=== PATIENT | female | born 1970 | race Caucasian/White ===

== ENCOUNTER 2019-01-25 19:39 | Emergency (ER) | payer OTHER ==
[~2019-01-25] VITALS: Ht 152.4 cm; Wt 81.7 kg
[2019-01-25 20:16] VITALS: Ht 152.4 cm; Wt 81.7 kg
[2019-01-25] MEDS ORDERED: ONDANSETRON 4 MG INJ IV STA (22:27)
[2019-01-25] MEDS ORDERED: KETOROLAC 30 MG INJ IV STA (22:27)
[2019-01-25] MEDS ORDERED: SOD CHLORIDE 0.9% 1,000 ML IV STA (22:27)
[2019-01-25] MEDS ORDERED: morphine 4 MG/ML VIAL IV STA (22:27)
[2019-01-25] MEDS ORDERED: IBUP-1545 PO (23:51)
[2019-01-26] MEDS ORDERED: HYDROmorphONE 1 MG/ML SYG IV STA (03:02)
--- NOTE | 2019-01-26 05:27 | ERD ---
ER Documentation Chief Complaint Chief Complaint right flank pain x 2 days, hx of kidney stone HPI This is a resident very pleasant 48-year female right flank pain for 2 days. Patient has history of kidney stones. Flank pain is mild to moderate intensity colicky in nature with no exacerbating relieving factors and is consistent with a history of kidney stones. Denies any fevers or chills. Denies any other current issues. ROS All systems reviewed and are negative except as per history of present illness. Medications Home Meds Reported Medications Ibuprofen* (Ibuprofen*) 800 Mg Tab, 800 MG PO Q6H PRN for PAIN, TAB 01/25/19 Allergies Allergies: Coded Allergies: No Known Drug Allergies (Verified Allergy, Unknown, 01/25/19) PMhx/Soc History of Surgery: Yes (4 C-sections, bilat ureter stents) Anesthesia Reaction: No Hx Neurological Disorder: No Hx Respiratory Disorders: No Hx Cardiac Disorders: No Hx Psychiatric Problems: No Hx Miscellaneous Medical Probl: No Hx Alcohol Use: No Hx Substance Use: No Hx Tobacco Use: Yes (Quit Cigarettes 2007) Smoking Status: Former smoker Physical Exam Vitals Vital Signs Date Temp Pulse Resp B/P (MAP) Pulse Ox O2 O2 Flow FiO2 Time Delivery Rate 01/26/19 98.6 72 18 105/71 100 Room Air 03:00 (82) 01/26/19 98.6 73 18 104/62 100 Room Air 01:22 (76) 01/25/19 98.6 79 18 132/77 100 20:16 (95) Physical Exam Const: No acute distress Head: Atraumatic Eyes: Normal Conjunctiva ENT: Normal External Ears, Nose and Mouth. Neck: Full range of motion. No meningismus. Resp: Clear to auscultation bilaterally Cardio: Regular rate and rhythm, no murmurs Abd: Soft, non tender, non distended. Normal bowel sounds Skin: No petechiae or rashes Back: No midline or flank tenderness Ext: No cyanosis, or edema Neur: Awake and alert Psych: Normal Mood and Affect Result Diagram: 01/25/19224401/25/192244 Results 24 hrs Laboratory Tests Test 01/25/19 22:42 01/25/19 22:45 01/25/19 22:54 Urine Color YELLOW Urine Clarity CLOUDY Urine pH 5.0 Urine Specific [place] 1.015 Urine Ketones TRACE mg/dL Urine Nitrite NEGATIVE mg/dL Urine Bilirubin NEGATIVE mg/dL Urine Urobilinogen NEGATIVE mg/dL Urine Leukocyte Esterase 3+ Tyra/ul Urine Microscopic RBC > 182 /HPF Urine Microscopic WBC > 182 /HPF Urine Squamous Epithelial Cells FEW /HPF Urine Bacteria FEW /HPF Urine Hemoglobin 3+ mg/dL Urine Glucose NEGATIVE mg/dL Urine Total Protein 1+ mg/dl White Blood Count 6.7 10^3/ul Red Blood Count 4.85 10^6/ul Hemoglobin 11.6 g/dl Hematocrit 37.4 % Mean Corpuscular Volume 77.1 fl Mean Corpuscular Hemoglobin 23.9 pg Mean Corpuscular 31.0 g/dl Hemoglobin Concent Red Cell Distribution Width 13.9 % Platelet Count 292 10^3/UL Mean Platelet Volume 9.5 fl Immature Granulocytes % 0.300 % Neutrophils % 56.9 % Lymphocytes % 32.5 % Monocytes % 8.4 % Eosinophils % 1.4 % Basophils % 0.5 % Nucleated Red Blood Cells % 0.0 /100WBC Immature Granulocytes # 0.020 10^3/ul Neutrophils # 3.8 10^3/ul Lymphocytes # 2.2 10^3/ul Monocytes # 0.6 10^3/ul Eosinophils # 0.1 10^3/ul Basophils # 0.0 10^3/ul Nucleated Red Blood Cells # 0.0 10^3/ul Sodium Level 139 mmol/L Potassium Level 4.0 mmol/L Chloride Level 107 mmol/L Carbon Dioxide Level 20 mmol/L Anion Gap 12 Blood Urea Nitrogen 18 mg/dl Creatinine 0.63 mg/dl Est Glomerular Filtrat > 60 mL/min Rate mL/min Glucose Level 94 mg/dl Calcium Level 9.6 mg/dl Total Bilirubin 0.2 mg/dl Direct Bilirubin 0.00 mg/dl Indirect Bilirubin 0.2 mg/dl Aspartate Amino 21 IU/L Transf (AST/SGOT) Alanine 21 IU/L Aminotransferase (ALT/SGPT) Alkaline Phosphatase 88 IU/L Total Protein 7.7 g/dl Albumin 4.4 g/dl Globulin 3.30 g/dl Albumin/Globulin Ratio 1.33 Lipase 230 U/L POC Beta HCG, Qualitative NEGATIVE Current Medications Medications Dose Sig/Keegan Start Time Status Last (Trade) Ordered Route PRN Stop Time Admin Dose Reason Admin Sodium 1,000 ml @ Q1H STAT 01/25/19 DC 01/25/19 Chloride 1,000 mls/hr IV 22:27 23:22 01/25/19 23:26 Morphine 4 mg ONCE STAT 01/25/19 DC 01/25/19 Sulfate IV 22:27 23:22 (morphine) 01/25/19 22:29 Ondansetron 4 mg ONCE STAT 01/25/19 DC 01/25/19 HCl (Zofran IV 22:27 23:22 Inj) 01/25/19 22:29 Ketorolac 30 mg ONCE STAT 01/25/19 DC 01/25/19 Tromethamine IV 22:27 23:23 (Toradol) 01/25/19 22:29 1 mg ONCE STAT 01/26/19 DC 01/26/19 Hydromorphone IV 03:02 03:25 HCl 01/26/19 03:03 (Dilaudid) Procedures/MDM Medical decision making: Very pleasant patient with flank pain. Likely secondary to kidney stone. Pending CT scan at this time. Pain has completely resolved and will likely qualify for trial of outpatient management. Patient's gastrointestinal symptoms have stabilized while in the department. No evidence of severe dehydration, sepsis, or surgical abdomen. Extensive discussion with family and patient that occult disease cannot be ruled out. 8 hour recheck for repeat abdominal exam is planned. Departure Diagnosis: Primary Impression: Flank pain Condition: Stable VERA GRESHAM Jan 26, 2019 05:27
[2019-01-26] MEDS ORDERED: ONDA4TAB8 PO (05:28)
[2019-01-26] MEDS ORDERED: CIPR500T4 PO (05:28)
[2019-01-26] MEDS ORDERED: TRAM50TA2 PO (05:28)
[2019-01-26 05:49] VITALS: BP 154/86; PULSE 68; RESP 18
== END 2019-01-26 05:50 | disposition home or self-care (01) ==
LOC: E/R 19:39
DX: R10.9 Unspecified abdominal pain (principal); Z87.891 Personal history of nicotine dependence
CPT/HCPCS: 36415; 74176; 80053; 81001; 81025; 83690; 85025; 87086; 96374; 96375; J1170; J1885; J2270; J2405; J7030; Z7502

== ENCOUNTER 2019-02-11 17:29 | Inpatient (IN) | payer OTHER ==
[~2019-02-11] VITALS: Ht 154.9 cm; Wt 80.0 kg
[~2019-02-11 17:29] MED LIST: CIPR500T4 PO; IBUP-1545 PO; ONDA4TAB8 PO; TRAM50TA2 PO
[2019-02-11 20:20] VITALS: Ht 154.9 cm; Wt 80.0 kg
[2019-02-11 20:32] VITALS: BP 142/86; PULSE 76; RESP 18
--- NOTE | 2019-02-11 20:38 | HP ---
Date/Time of Note Date/Time of Note DATE: 02/11/19 TIME: 20:38 Assessment/Plan VTE Prophylaxis SCD applied (from Nsg): Yes Pharmacological prophylaxis: NA/contraindicated Pharm contraindication: low risk/ambulating Assessment/Plan Hospital Course This is a 49-year-old female being admitted to the [facility] floor for: #1 Pyelonephritis: Urinalysis showed positive leukoesterase. Mild hydronephrosis on CT. Creatinine was 0.95. Will obtain repeat CBC and CMP. Patient did receive ceftriaxone and IV fluids with the transfer facility, the current time will continue ceftriaxone based on the culture and sensitivities. Patient does have a right ureteral stent placed. On the repeat CAT scan done at the transferring hospital there does not appear to be any signs of any kidney stones which were present on the prior CT performed [facility] on 01/26/2019. We will continue treatment with ceftriaxone given patient's sensitivities. Will consult urology dr. Luis for likely stent removal. #2 Microcytic anemia: We will check stool occult blood, check iron stores #3 obesity, check hemoglobin A1c, lipids, TSH #4 DVT GI prophylaxis: SCDs, no GI prophylaxis indicated further treatment strategy will be implemented as per the clinical course. Further treatment strategy will be implemented as per the clinical course. HPI/ROS Admit Date/Time Admit Date/Time Feb 11, 2019 at 20:14 Hx of Present Illness chief complaint: Right-sided flank pain This is a 49-year-old female with a past medical history of kidney stones who presented to [facility] complaining of right-sided flank pain. Patient reported that the pain radiated to her abdomen. She also reported hematuria. History of kidney stones. She denied reporting any fevers chills but she did report dysuria. She did have ureteral stents placed approximately 3 months ago at [facility] but because she switched insurances she was unable to follow-up with the urologist.. Patient also presented to [facility] on 01/26/2019 and was found to have a 3 mm and 4 mm nonobstructing kidney stone. Patient was ultimately discharged that day. She had a urine culture that was drawn at that time that was positive for 100,000 E. coli that was resistant to multiple antibiotics but sensitive to cefazolin and cefotaxime. Patient had a repeat CT scan at [facility] that showed right ureteral stent, and IUD mild right hydronephrosis and no other significant finding there was no signs of any stones in the renal or ureteral areas. The patient did receive ceftriaxone and IV fluid hydration prior to transfer. Vitals at transfer facility: Blood pressure 131/58 pulse 66 temperature 98.4 respirations 18 SPO2 97% on room air Pertinent laboratory findings from transfer facility please see chart for full details: Hemoglobin 10.4 hematocrit 32.5 MCV 74.6 creatinine 0.95 urinalysis: Leukoesterase 3+ white blood cells and RBC greater than 50 specific gravity greater than 1.030 Allergies: NKDA medications: See MAR ROS Const: Negative for fever, chills, weight gain or weight loss, fatigue, or diaphoresis Eyes : No pain discharge or redness or change in visual acuity ENT: No pain, sore throat, congestion, congestion, dysphagia or discharge Respiratory: No shortness of breath, cough, sputum, wheezing, or pleuritic pain Cardiovascular: No chest pain, palpitation, PND, or edema GI : no change in appetite, abdominal pain, nausea, vomiting, diarrhea, constipation, or change in the color his stool Genitourinary: As per HPI Musculoskeletal: No joint pain, back pain, neck pain, restricted range of motion in neck or joints Skin: No rash, bruising or hives Neuro: No headache, dizziness, syncope, seizure, focal weakness Endocrine: No polyuria, polydipsia, temperature intolerance Psych: No hallucination, depression, anxiety or suicidal ideation PMH/Family/Social Past Medical History Nephrolithiasis Coded Allergies: No Known Drug Allergies (Verified Allergy, Unknown, 01/25/19) Past Surgical History Ureteral stent placement,, csection x 5 Family History Significant Family History: no pertinent family hx Social History Alcohol Use: none Drug Use: none Exam/Review of Systems Vital Signs Vitals Vital Signs Date Temp Pulse Resp B/P (MAP) Pulse Ox O2 O2 Flow FiO2 Time Delivery Rate 02/11/19 97.5 76 18 142/86 98 20:32 (104) Exam Exam General: This a pleasant female currently lying in bed in mild distress right flank pain HEENT: Atraumatic, normocephalic. The pupils are equal, round and reactive. E xtraocular motor are intact Neck: Supple with full range of motion. No rigidity or meningismus Chest: Nontender Lungs: Clear to auscultation bilaterally no crackles rales or wheezing Heart: Normal S1-S2, Regular rhythm and rate. No murmur, S3, or S4 Abdomen: Soft, nontender, nondistended, normal bowel sounds, mild right flank pain to palpation Extremities: Normal to inspection, no edema no cyanosis Neurologic: Normal mental status, speech normal, cranial nerves II through XII are intact, motor and sensory are intact, no focal weakness Additional Comments Specimen: [id number] Status: Complete Major: 01/25/19 Rcvd: 01/25/19 Source: [facility] Descrip: ----- Procedure Result Microbiology URINE CULTURE Final Organism 1 ENTEROCOCCUS SPECIES COLONY COUNT >100,000 CFU/ml Organism 2 ESCHERICHIA COLI COLONY COUNT <10,000 CFU/ml ENT SPS E COLI M.I.C. RX M.I.C. RX --------- --- --------- --- AMIKACIN <=2 S AMPICILLIN <=2 S >=32 R CEFAZOLIN <=4 S CEFOTAXIME S CIPROFLOXACIN 1 S >=4 R GENTAMICIN >=16 R LEVOFLOXACIN 0.5 S >=8 R NITROFURANTOIN <=16 S <=16 S PENICILLIN-G 4 S VANCOMYCIN 2 S TOBRAMYCIN 8 I TRIMETHOPRIM/SULFAMETHOXAZOLE <=20 S VENESSA MERRILL Feb 11, 2019 20:38
[2019-02-11] MEDS: HYDROmorphONE 0.5 MG/0.5 ML SYG IV PRN (20:50)
[2019-02-11] MEDS: SOD CHLORIDE 0.9% 1,000 ML IV SCH (20:52)
[2019-02-11] MEDS ORDERED: ACETAMINOPHEN 325 MG TAB PO PRN (21:00)
[2019-02-11] MEDS ORDERED: NACL 0.9% 3 ML SYG IV SCH (21:00)
[2019-02-11] MEDS ORDERED: ONDANSETRON 4 MG INJ IV PRN (21:00)
[2019-02-11] MEDS ORDERED: DOCUSATE SODIUM 100 MG CAP PO PRN (21:00)
[2019-02-11] MEDS ORDERED: BISACODYL (EC) 5 MG TAB PO PRN (21:00)
[2019-02-12] MEDS: HYDROmorphONE 0.5 MG/0.5 ML SYG IV PRN ×6 (01:04→22:18)
[2019-02-12 02:00] VITALS: BP 139/81; PULSE 77; RESP 17
[2019-02-12] MEDS ORDERED: CEFTRIAXONE 1 GM/50 ML (PMX) 50 ML IVPB SCH (03:30)
[2019-02-12] MEDS: TAMSULOSIN (SR) 0.4 MG CAP PO SCH ×2 (04:48→21:28)
[2019-02-12] MEDS: KETOROLAC 15 MG INJ IV PRN ×2 (07:32→16:40)
[2019-02-12] MEDS: SOD CHLORIDE 0.9% 1,000 ML IV SCH ×3 (07:33→23:25)
[2019-02-12 08:00] VITALS: BP 110/64; PULSE 74; RESP 20
--- NOTE | 2019-02-12 12:27 | PN ---
Date/Time of Note Date/Time of Note DATE: 02/12/19 TIME: 12:24 Assessment/Plan VTE Prophylaxis Risk score (from Nsg)>0 risk: 2 SCD applied (from Nsg): Yes Pharmacological prophylaxis: NA/contraindicated Pharm contraindication: low risk/ambulating Lines/Catheters IV Catheter Type (from Nrsg): Peripheral IV Assessment/Plan Hospital Course SUBJECTIVE: Continues to complain of dysuria and hematuria. OBJECTIVE: Physical Exam General: Adequately build 49 year-old female lying in bed in no apparent distress. HEENT: Normocephalic, atraumatic. Eyes: Anicteric sclerae, conjunctivae clear. ENT: Nasal septum midline, oral mucosa moist. Neck supple, no JVD noticed. Respiratory: Bilaterally clear breath sounds. No use of accessory muscles of res piration. No adventitious breath sounds. Cardiovascular: S1, S2 heard. Regular rate and rhythm. Abdomen: Soft, nontender, and nondistended. Bowel sounds positive in all 4 quadrants. Genitourinary: Right CVA tenderness. Extremities: No cyanosis, no clubbing, no edema. Peripheral pulses palpable. Neurologic: Cranial nerves II through XII grossly intact. The patient is awake, alert, and oriented. Skin: Normal skin turgor. No skin rashes. Labs & Vitals per chart ASSESSMENT & PLAN 49-year-old female with past medical history of nephrolithiasis, status post JJ stent placement in November 2018 at [facility]. The patient went to [facility] complaining of right-sided flank pain, hematuria, and dysuria. CT scan done at the transferring facility showed right ureteral stent, IUD, and mild right hydronephrosis. The patient was trans ferred to [facility] because of insurance reasons. 1. Right sided-pyelonephritis. -Possibly infected JJ stent. -Continue antimicrobials. -Await final cultures. -Continue IV hydration. 2. History of nephrolithiasis, status post previous stent placement. -Urology consult has been obtained. 3. Microcytic, hypochromic anemia. -Iron panel showing iron deficiency. -Start iron supplements. 4. Obesity. -BMI more than 33 kg/m. -A1c 5.7. -Weight reduction advised. 5. Fluids, electrolytes, and nutrition. - Regular diet. 6. DVT prophylaxis -Bilateral SCDs 7. Plan. -Continue empiric antimicrobials -Continue IV fluids -Await final cultures. -Await urology evaluation. The patient was seen in collaboration with Dr. Rodriguez. Result Diagram: 02/12/19 0445 02/12/19 0445 Results 24hrs Laboratory Tests Test 02/11/19 20:53 02/12/19 04:45 White Blood Count 4.6 #L 4.6 L Red Blood Count 3.79 #L 3.87 L Hemoglobin 8.9 #L 9.1 L Hematocrit 29.4 #L 29.9 L Mean Corpuscular Volume 77.6 L 77.3 L Mean Corpuscular Hemoglobin 23.5 L 23.5 L Mean Corpuscular Hemoglobin Concent 30.3 L 30.4 L Red Cell Distribution Width 14.0 14.3 Platelet Count 235 255 Mean Platelet Volume 9.0 10.3 Immature Granulocytes % 0.200 0.400 Neutrophils % 38.4 L 54.2 Lymphocytes % 48.6 34.6 Monocytes % 10.4 8.3 Eosinophils % 2.0 1.8 Basophils % 0.4 0.7 Nucleated Red Blood Cells % 0.0 0.0 Immature Granulocytes # 0.010 0.020 Neutrophils # 1.8 2.5 Lymphocytes # 2.2 1.6 Monocytes # 0.5 0.4 Eosinophils # 0.1 0.1 Basophils # 0.0 0.0 Nucleated Red Blood Cells # 0.0 0.0 Sodium Level 141 142 Potassium Level 4.2 4.2 Chloride Level 113 H 111 H Carbon Dioxide Level 22 22 Anion Gap 6 9 Blood Urea Nitrogen 13 12 Creatinine 0.69 0.60 Est Glomerular Filtrat Rate mL/min > 60 > 60 Glucose Level 103 95 Calcium Level 8.7 8.6 Total Bilirubin 0.2 0.1 L Direct Bilirubin 0.00 0.00 Indirect Bilirubin 0.2 0.1 Aspartate Amino Transf (AST/SGOT) 21 18 Alanine Aminotransferase (ALT/SGPT) 20 28 Alkaline Phosphatase 69 73 Total Protein 6.2 6.2 Albumin 3.5 3.4 Globulin 2.70 2.80 Albumin/Globulin Ratio 1.29 1.21 Hemoglobin A1c 5.7 Iron Level 27 L Total Iron Binding Capacity 418 Percent Iron Saturation 6 L Ferritin 3.4 L Triglycerides Level 154 H Cholesterol Level 181 LDL Cholesterol, Calculated 119 HDL Cholesterol 31 L Cholesterol/HDL Ratio 5.8 Thyroid Stimulating Hormone (TSH) 3.320 Exam/Review of Systems Exam Vitals Vital Signs Date Temp Pulse Resp B/P (MAP) Pulse Ox O2 O2 Flow FiO2 Time Delivery Rate 02/12/19 98.8 74 20 110/64 64 08:00 (79) Intake and Output 02/11/19 02/11/19 02/12/19 1515:00 23:00 07:00 IntakeIntake Total 240 ml 1240 ml BalanceBalance 240 ml 1240 ml Results Results 24hrs Laboratory Tests Test 02/11/19 20:53 02/12/19 04:45 White Blood Count 4.6 #L 4.6 L Red Blood Count 3.79 #L 3.87 L Hemoglobin 8.9 #L 9.1 L Hematocrit 29.4 #L 29.9 L Mean Corpuscular Volume 77.6 L 77.3 L Mean Corpuscular Hemoglobin 23.5 L 23.5 L Mean Corpuscular Hemoglobin Concent 30.3 L 30.4 L Red Cell Distribution Width 14.0 14.3 Platelet Count 235 255 Mean Platelet Volume 9.0 10.3 Immature Granulocytes % 0.200 0.400 Neutrophils % 38.4 L 54.2 Lymphocytes % 48.6 34.6 Monocytes % 10.4 8.3 Eosinophils % 2.0 1.8 Basophils % 0.4 0.7 Nucleated Red Blood Cells % 0.0 0.0 Immature Granulocytes # 0.010 0.020 Neutrophils # 1.8 2.5 Lymphocytes # 2.2 1.6 Monocytes # 0.5 0.4 Eosinophils # 0.1 0.1 Basophils # 0.0 0.0 Nucleated Red Blood Cells # 0.0 0.0 Sodium Level 141 142 Potassium Level 4.2 4.2 Chloride Level 113 H 111 H Carbon Dioxide Level 22 22 Anion Gap 6 9 Blood Urea Nitrogen 13 12 Creatinine 0.69 0.60 Est Glomerular Filtrat Rate mL/min > 60 > 60 Glucose Level 103 95 Calcium Level 8.7 8.6 Total Bilirubin 0.2 0.1 L Direct Bilirubin 0.00 0.00 Indirect Bilirubin 0.2 0.1 Aspartate Amino Transf (AST/SGOT) 21 18 Alanine Aminotransferase (ALT/SGPT) 20 28 Alkaline Phosphatase 69 73 Total Protein 6.2 6.2 Albumin 3.5 3.4 Globulin 2.70 2.80 Albumin/Globulin Ratio 1.29 1.21 Hemoglobin A1c 5.7 Iron Level 27 L Total Iron Binding Capacity 418 Percent Iron Saturation 6 L Ferritin 3.4 L Triglycerides Level 154 H Cholesterol Level 181 LDL Cholesterol, Calculated 119 HDL Cholesterol 31 L Cholesterol/HDL Ratio 5.8 Thyroid Stimulating Hormone (TSH) 3.320 Medications Medication Current Medications Sodium Chloride 1,000 ml @ 100 mls/hr Q10H IV Last administered on 02/12/19 07:33; Admin Dose 100 MLS/HR; Start 02/11/19 at 20:35 IV Flush (NS 3 ml) 3 ml PER PROTOCOL IV ; Start 02/11/19 at 21:00 Ondansetron HCl (Zofran Inj) 4 mg Q6H PRN IV NAUSEA/VOMITING Last administered on 02/11/19at 20:50; Admin Dose 4 MG; Start 02/11/19 at 21:00 Acetaminophen (Tylenol Tab) 650 mg Q6H PRN PO .PAIN 1-3 OR TEMP; Start 02/11/19 at 21:00 Hydromorphone HCl (Dilaudid) 0.5 mg Q4H PRN IV .SEVERE PAIN 7-10 Last administered on 02/12/19 09:12; Admin Dose 0.5 MG; Start 02/11/19 at 21:00 Docusate Sodium (Colace) 100 mg Q12H PRN PO .CONSTIPATION; Start 02/11/19 at 21:00 Bisacodyl (Dulcolax) 5 mg DAILY PRN PO .CONSTIPATION; Start 02/11/19 at 21:00 Tamsulosin HCl (Flomax) 0.4 mg HS PO Last administered on 02/12/19at 04:48; Admin Dose 0.4 MG; Start 02/12/19 at 03:30 Ketorolac Tromethamine (Toradol) 15 mg Q6H PRN IV PAIN Last administered on 02/12/19 07:32; Admin Dose 15 MG; Start 02/12/19 at 03:30; Stop 02/15/19 at 03:29 Ceftriaxone Sodium 50 ml @ 100 mls/hr Q24H IVPB ; Start 02/12/19 at 14:00 KAREN SHARIF NP Feb 12, 2019 12:27
[2019-02-12 14:00] VITALS: BP 123/62; PULSE 86; RESP 18
[2019-02-12] MEDS: CEFTRIAXONE 1 GM/50 ML (PMX) 50 ML IVPB SCH (14:02)
[2019-02-12] MEDS: SOD FERRIC GLUC COMPLX 125 MG in SOD CHLORIDE 0.9% 100 ML IVPB SCH (14:47)
[2019-02-12 20:28] VITALS: BP 112/71; PULSE 79; RESP 20
--- NOTE | 2019-02-12 21:36 | CONS ---
Assessment/Plan Assessment/Plan Hospital Course (Demo Recall) This is a 49-year-old female who back in November 2018 and underwent surgery for ureteral stones at [facility]. She states she did have a JJ stent in the left ureter which was attached to a string that was brought out through her urethra she also had another JJ stent on the right side but that one was kept indwelling without the string attached to it since then the left ur eteral stent was removed and she was told by the doctors at [facility] that she needs to keep her right ureteral JJ stent longer. She states that every time she goes over there and last time was on February 08 they keep telling her to wait another 2 weeks. Question is if there was any ureteral injury that required to have the JJ stent for a long time to allow the ureter to heal. The patient does not know of any problem like that. She has been to different hospital since including [facility] and [facility] and [facility]. The patient presented to this hospital now because of back pain. I tried to find out from the patient to why they keep telling her to wait another 2 weeks before they remove the JJ stent. There could be a possibility o f ureteral injury and the wait is to allow that to heal. For now treat her infection, encourage p.o. fluids and try to obtain her records from [facility]. If there is no issue of ureteral injury then we could go ahead and do a cystoscopy and remove the JJ stent. Consultation Date/Type/Reason Admit Date/Time Feb 11, 2019 at 20:14 Date of Consultation: Feb 12, 2019 Type of Consult Urology Reason for Consultation Right ureteral JJ stent and recurrent urinary tract infections Requesting Provider: BIB RUGGIERO MD Date/Time of Note DATE: 02/12/19 TIME: 21:26 Hx of Present Illness This is a 49-year-old female who back in November 2018 and underwent surgery for ureteral stones at [facility]. She states she did have a JJ stent in the left ureter which was attached to a string that was brought out through her urethra she also had another JJ stent on the right side but that one was kept indwelling without the string attached to it since then the left ureteral stent was removed and she was told by the doctors at [facility] that she needs to keep her right ureteral JJ stent longer. She states that every time she goes over there and last time was on February 08 they keep telling her to wait another 2 weeks. Question is if there was any ureteral injury that required to have the JJ stent for a long time to allow the ureter to heal. The patient does not know of any problem like that. She has been to different hospital since including [facility] and [facility] and [facility]. The patient presented to this hospital now because of back pain. Constitutional: no complaints Eyes: no complaints ENT: no complaints Respiratory: no complaints; No wheezing Cardiovascular: no complaints; No chest pain Gastrointestinal: no complaints; No nausea, No vomiting Genitourinary: dysuria Musculoskeletal: no complaints Skin: no complaints Neurologic: no complaints Endocrine: no complaints Lymphatic: no complaints Past Medical History Medical History: no pertinent history Home Meds Active Scripts Ondansetron Hcl* (Zofran*) 4 Mg Tablet, 4 MG PO Q6H for NAUSEA AND/OR VOMITING, #30 TAB Prov:VERA GRESHAM 01/26/19 Tramadol HCl (Tramadol HCl) 50 Mg Tablet, 50 MG PO Q4 PRN for PAIN, #20 TAB Prov:VERA GRESHAM 01/26/19 Reported Medications Ibuprofen* (Ibuprofen*) 800 Mg Tab, 800 MG PO Q6H PRN for PAIN, TAB 01/25/19 Discontinued Scripts Ciprofloxacin Hcl* (Ciprofloxacin Hcl*) 500 Mg Tablet, 500 MG PO BID for 3 Days, TAB Prov:VERA GRESHAM 01/26/19 Medications Current Medications Sodium Chloride 1,000 ml @ 100 mls/hr Q10H IV Last administered on 02/12/19at 07:33; Admin Dose 100 MLS/HR; Start 02/11/19 at 20:35 IV Flush (NS 3 ml) 3 ml PER PROTOCOL IV ; Start 02/11/19 at 21:00 Ondansetron HCl (Zofran Inj) 4 mg Q6H PRN IV NAUSEA/VOMITING Last administered on 02/11/19at 20:50; Admin Dose 4 MG; Start 02/11/19 at 21:00 Acetaminophen (Tylenol Tab) 650 mg Q6H PRN PO .PAIN 1-3 OR TEMP; Start 02/11/19 at 21:00 Hydromorphone HCl (Dilaudid) 0.5 mg Q4H PRN IV .SEVERE PAIN 7-10 Last administered on 02/12/19 18:11; Admin Dose 0.5 MG; Start 02/11/19 at 21:00 Docusate Sodium (Colace) 100 mg Q12H PRN PO .CONSTIPATION; Start 02/11/19 at 21:00 Bisacodyl (Dulcolax) 5 mg DAILY PRN PO .CONSTIPATION; Start 02/11/19 at 21:00 Tamsulosin HCl (Flomax) 0.4 mg HS PO Last administered on 02/12/19 04:48; Admin Dose 0.4 MG; Start 02/12/19 at 03:30 Ketorolac Tromethamine (Toradol) 15 mg Q6H PRN IV PAIN Last administered on 02/12/19 16:40; Admin Dose 15 MG; Start 02/12/19 at 03:30; Stop 02/15/19 at 03:29 Ceftriaxone Sodium 50 ml @ 100 mls/hr Q24H IVPB Last administered on 02/12/19at 14:02; Admin Dose 100 MLS/HR; Start 02/12/19 at 14:00 Ferric Sodium Gluconate Complex 125 mg/Sodium Chloride 100 ml @ 100 mls/hr DAILY@1300 IVPB Last administered on 02/12/19 14:47; Admin Dose 100 MLS/HR; Start 02/12/19 at 15:00; Stop 02/14/19 at 13:59 Allergies: Coded Allergies: No Known Drug Allergies (Verified Allergy, Unknown, 01/25/19) Past Surgical History Past Surgical Hx: other (Cystoscopy, ureteroscopy, laser lithotripsy and insertion of ureteral JJ stents) Social History Alcohol Use: none Smoking Status: Never smoker Drug Use: none Other Social History 6 para 6, 4 C-sections and 2 normal deliveries Exam/Review of Systems Exam Vitals Vital Signs Date Temp Pulse Resp B/P (MAP) Pulse Ox O2 O2 Flow FiO2 Time Delivery Rate 02/12/19 98.3 79 20 112/71 96 20:28 (85) Intake and Output 02/11/19 02/11/19 02/12/19 1515:00 23:00 07:00 IntakeIntake Total 240 ml 1240 ml BalanceBalance 240 ml 1240 ml Constitutional: alert Psych: no complaints Head: normocephalic Eyes: nl conjunctiva ENMT: nl external ears & nose Neck: supple Respiratory: normal air movement; No wheezing Cardiovascular: No jugular venous distention (JVD) Gastrointestinal: soft Genitourinary - Female: CVA tenderness (Right side) Extremities: No calf tenderness Neurological: nl mental status Results Result Diagram: 02/12/19 0445 02/12/19 0445 Results 24hrs Laboratory Tests Test 02/12/19 04:45 White Blood Count 4.6 L Red Blood Count 3.87 L Hemoglobin 9.1 L Hematocrit 29.9 L Mean Corpuscular Volume 77.3 L Mean Corpuscular Hemoglobin 23.5 L Mean Corpuscular Hemoglobin Concent 30.4 L Red Cell Distribution Width 14.3 Platelet Count 255 Mean Platelet Volume 10.3 Immature Granulocytes % 0.400 Neutrophils % 54.2 Lymphocytes % 34.6 Monocytes % 8.3 Eosinophils % 1.8 Basophils % 0.7 Nucleated Red Blood Cells % 0.0 Immature Granulocytes # 0.020 Neutrophils # 2.5 Lymphocytes # 1.6 Monocytes # 0.4 Eosinophils # 0.1 Basophils # 0.0 Nucleated Red Blood Cells # 0.0 Sodium Level 142 Potassium Level 4.2 Chloride Level 111 H Carbon Dioxide Level 22 Anion Gap 9 Blood Urea Nitrogen 12 Creatinine 0.60 Est Glomerular Filtrat Rate mL/min > 60 Glucose Level 95 Hemoglobin A1c 5.7 Calcium Level 8.6 Iron Level 27 L Total Iron Binding Capacity 418 Percent Iron Saturation 6 L Ferritin 3.4 L Total Bilirubin 0.1 L Direct Bilirubin 0.00 Indirect Bilirubin 0.1 Aspartate Amino Transf (AST/SGOT) 18 Alanine Aminotransferase (ALT/SGPT) 28 Alkaline Phosphatase 73 Total Protein 6.2 Albumin 3.4 Globulin 2.80 Albumin/Globulin Ratio 1.21 Triglycerides Level 154 H Cholesterol Level 181 LDL Cholesterol, Calculated 119 HDL Cholesterol 31 L Cholesterol/HDL Ratio 5.8 Thyroid Stimulating Hormone (TSH) 3.320 Medications Medication Current Medications Sodium Chloride 1,000 ml @ 100 mls/hr Q10H IV Last administered on 02/12/19at 07:33; Admin Dose 100 MLS/HR; Start 02/11/19 at 20:35 IV Flush (NS 3 ml) 3 ml PER PROTOCOL IV ; Start 02/11/19 at 21:00 Ondansetron HCl (Zofran Inj) 4 mg Q6H PRN IV NAUSEA/VOMITING Last administered on 02/11/19at 20:50; Admin Dose 4 MG; Start 02/11/19 at 21:00 Acetaminophen (Tylenol Tab) 650 mg Q6H PRN PO .PAIN 1-3 OR TEMP; Start 02/11/19 at 21:00 Hydromorphone HCl (Dilaudid) 0.5 mg Q4H PRN IV .SEVERE PAIN 7-10 Last administered on 02/12/19at 18:11; Admin Dose 0.5 MG; Start 02/11/19 at 21:00 Docusate Sodium (Colace) 100 mg Q12H PRN PO .CONSTIPATION; Start 02/11/19 at 21:00 Bisacodyl (Dulcolax) 5 mg DAILY PRN PO .CONSTIPATION; Start 02/11/19 at 21:00 Tamsulosin HCl (Flomax) 0.4 mg HS PO Last administered on 02/12/19 04:48; Admin Dose 0.4 MG; Start 02/12/19 at 03:30 Ketorolac Tromethamine (Toradol) 15 mg Q6H PRN IV PAIN Last administered on 02/12/19 16:40; Admin Dose 15 MG; Start 02/12/19 at 03:30; Stop 02/15/19 at 03:29 Ceftriaxone Sodium 50 ml @ 100 mls/hr Q24H IVPB Last administered on 02/12/19 14:02; Admin Dose 100 MLS/HR; Start 02/12/19 at 14:00 Ferric Sodium Gluconate Complex 125 mg/Sodium Chloride 100 ml @ 100 mls/hr DAILY@1300 IVPB Last administered on 02/12/19at 14:47; Admin Dose 100 MLS/HR; Start 02/12/19 at 15:00; Stop 02/14/19 at 13:59 BEST ARTIS MD Feb 12, 2019 21:36
[2019-02-13] MEDS: KETOROLAC 15 MG INJ IV PRN ×3 (00:53→23:59)
[2019-02-13 02:39] VITALS: BP 107/67; PULSE 66; RESP 18
[2019-02-13] MEDS: HYDROmorphONE 0.5 MG/0.5 ML SYG IV PRN ×4 (02:40→20:09)
[2019-02-13 07:35] VITALS: BP 126/60; PULSE 82; RESP 16
[2019-02-13] MEDS: SOD CHLORIDE 0.9% 1,000 ML IV SCH ×2 (09:41→22:14)
[2019-02-13] MEDS: HYDROCODONE/APAP (7.5/325) TAB PO PRN (12:42)
[2019-02-13] MEDS: SOD FERRIC GLUC COMPLX 125 MG in SOD CHLORIDE 0.9% 100 ML IVPB SCH (13:10)
[2019-02-13 14:25] VITALS: BP 119/63; PULSE 75; RESP 16
--- NOTE | 2019-02-13 14:56 | PN ---
Date/Time of Note Date/Time of Note DATE: 02/13/19 TIME: 14:55 Assessment/Plan VTE Prophylaxis Risk score (from Nsg)>0 risk: 2 SCD applied (from Nsg): Yes Pharmacological prophylaxis: NA/contraindicated Pharm contraindication: low risk/ambulating Lines/Catheters IV Catheter Type (from Nrsg): Peripheral IV Assessment/Plan Hospital Course SUBJECTIVE: Continues to complain of dysuria and hematuria. OBJECTIVE: Physical Exam General: Adequately build 49 year-old female lying in bed in no apparent distress. HEENT: Normocephalic, atraumatic. Eyes: Anicteric sclerae, conjunctivae clear. ENT: Nasal septum midline, oral mucosa moist. Neck supple, no JVD noticed. Respiratory: Bilaterally clear breath sounds. No use of accessory muscles of respiration. No adventitious breath sounds. Cardiovascular: S1, S2 heard. Regular rate and rhythm. Abdomen: Soft, nontender, and nondistended. Bowel sounds positive in all 4 quadrants. Genitourinary: Right CVA tenderness. Extremities: No cyanosis, no clubbing, no edema. Peripheral pulses palpable. Neurologic: Cranial nerves II through XII grossly intact. The patient is awake, alert, and oriented. Skin: Normal skin turgor. No skin rashes. Labs & Vitals per chart ASSESSMENT & PLAN 49-year-old female with past medical history of nephrolithiasis, status post JJ stent placement in November 2018 at [facility]. The patient went to [facility] complaining of right-sided flank pain, hematuria, and dysuria. CT scan done at the transferring facility showed right ureteral stent, IUD, and mild right hydronephrosis. The patient was transferred to [facility] [place] because of insurance reasons. 1. Right sided-pyelonephritis. -Possibly infected JJ stent. -Continue antimicrobials. -Await final cultures. -Continue IV hydration. 2. History of nephrolithiasis, status post previous stent placement. -Urology consult has been obtained. 3. Microcytic, hypochromic anemia. -Iron panel showing iron deficiency. -Start iron supplements. 4. Obesity. -BMI more than 33 kg/m. -A1c 5.7. -Weight reduction advised. 5. Fluids, electrolytes, and nutrition. - Regular diet. 6. DVT prophylaxis -Bilateral SCDs 7. Plan. -Continue empiric antimicrobials -Continue IV fluids -Await final cultures. -Obtain urine cultures from [facility]. The patient was seen in collaboration with Dr. Rodriguez. Result Diagram: 02/13/1944202/13/19442 Results 24hrs Laboratory Tests Test 02/13/19 04:43 White Blood Count 4.6 L Red Blood Count 3.72 L Hemoglobin 8.7 L Hematocrit 28.6 L Mean Corpuscular Volume 76.9 L Mean Corpuscular Hemoglobin 23.4 L Mean Corpuscular Hemoglobin Concent 30.4 L Red Cell Distribution Width 14.2 Platelet Count 237 Mean Platelet Volume 10.2 Immature Granulocytes % 0.200 Neutrophils % 50.9 Lymphocytes % 35.6 Monocytes % 10.2 Eosinophils % 2.4 Basophils % 0.7 Nucleated Red Blood Cells % 0.0 Immature Granulocytes # 0.010 Neutrophils # 2.4 Lymphocytes # 1.6 Monocytes # 0.5 Eosinophils # 0.1 Basophils # 0.0 Nucleated Red Blood Cells # 0.0 Sodium Level 142 Potassium Level 4.2 Chloride Level 110 Carbon Dioxide Level 25 Anion Gap 7 Blood Urea Nitrogen 11 Creatinine 0.58 Est Glomerular Filtrat Rate mL/min > 60 Glucose Level 109 Calcium Level 8.4 Phosphorus Level 4.1 Magnesium Level 1.9 Total Bilirubin 0.1 L Direct Bilirubin 0.00 Indirect Bilirubin 0.1 Aspartate Amino Transf (AST/SGOT) 18 Alanine Aminotransferase (ALT/SGPT) 24 Alkaline Phosphatase 67 Total Protein 6.0 L Albumin 3.2 L Globulin 2.80 Albumin/Globulin Ratio 1.14 Exam/Review of Systems Exam Vitals Vital Signs Date Temp Pulse Resp B/P (MAP) Pulse Ox O2 O2 Flow FiO2 Time Delivery Rate 02/13/19 97.8 82 16 126/60 97 Room Air 07:35 (82) Intake and Output 02/12/19 02/12/19 02/13/19 1515:00 23:00 07:00 IntakeIntake Total 410 ml 900 ml 1140 ml OutputOutput Total 300 ml 700 ml BalanceBalance 110 ml 200 ml 1140 ml Results Results 24hrs Laboratory Tests Test 02/13/19 04:43 White Blood Count 4.6 L Red Blood Count 3.72 L Hemoglobin 8.7 L Hematocrit 28.6 L Mean Corpuscular Volume 76.9 L Mean Corpuscular Hemoglobin 23.4 L Mean Corpuscular Hemoglobin Concent 30.4 L Red Cell Distribution Width 14.2 Platelet Count 237 Mean Platelet Volume 10.2 Immature Granulocytes % 0.200 Neutrophils % 50.9 Lymphocytes % 35.6 Monocytes % 10.2 Eosinophils % 2.4 Basophils % 0.7 Nucleated Red Blood Cells % 0.0 Immature Granulocytes # 0.010 Neutrophils # 2.4 Lymphocytes # 1.6 Monocytes # 0.5 Eosinophils # 0.1 Basophils # 0.0 Nucleated Red Blood Cells # 0.0 Sodium Level 142 Potassium Level 4.2 Chloride Level 110 Carbon Dioxide Level 25 Anion Gap 7 Blood Urea Nitrogen 11 Creatinine 0.58 Est Glomerular Filtrat Rate mL/min > 60 Glucose Level 109 Calcium Level 8.4 Phosphorus Level 4.1 Magnesium Level 1.9 Total Bilirubin 0.1 L Direct Bilirubin 0.00 Indirect Bilirubin 0.1 Aspartate Amino Transf (AST/SGOT) 18 Alanine Aminotransferase (ALT/SGPT) 24 Alkaline Phosphatase 67 Total Protein 6.0 L Albumin 3.2 L Globulin 2.80 Albumin/Globulin Ratio 1.14 Medications Medication Current Medications Sodium Chloride 1,000 ml @ 100 mls/hr Q10H IV Last administered on 02/13/19at 09:41; Admin Dose 100 MLS/HR; Start 02/11/19 at 20:35 IV Flush (NS 3 ml) 3 ml PER PROTOCOL IV ; Start 02/11/19 at 21:00 Ondansetron HCl (Zofran Inj) 4 mg Q6H PRN IV NAUSEA/VOMITING Last administered on 02/11/19at 20:50; Admin Dose 4 MG; Start 02/11/19 at 21:00 Acetaminophen (Tylenol Tab) 650 mg Q6H PRN PO .PAIN 1-3 OR TEMP; Start 02/11/19 at 21:00 Hydromorphone HCl (Dilaudid) 0.5 mg Q4H PRN IV .SEVERE PAIN 7-10 Last administered on 02/13/19at 13:11; Admin Dose 0.5 MG; Start 02/11/19 at 21:00 Docusate Sodium (Colace) 100 mg Q12H PRN PO .CONSTIPATION; Start 02/11/19 at 21:00 Bisacodyl (Dulcolax) 5 mg DAILY PRN PO .CONSTIPATION; Start 02/11/19 at 21:00 Tamsulosin HCl (Flomax) 0.4 mg HS PO Last administered on 02/12/19at 21:28; Admin Dose 0.4 MG; Start 02/12/19 at 03:30 Ketorolac Tromethamine (Toradol) 15 mg Q6H PRN IV PAIN Last administered on 02/13/19at 06:58; Admin Dose 15 MG; Start 02/12/19 at 03:30; Stop 02/15/19 at 03:29 Ceftriaxone Sodium 50 ml @ 100 mls/hr Q24H IVPB Last administered on 02/12/19at 14:02; Admin Dose 100 MLS/HR; Start 02/12/19 at 14:00 Ferric Sodium Gluconate Complex 125 mg/Sodium Chloride 100 ml @ 100 mls/hr DAILY@1300 IVPB Last administered on 02/13/19at 13:10; Admin Dose 100 MLS/HR; Start 02/12/19 at 15:00; Stop 02/14/19 at 13:59 Acetaminophen/ Hydrocodone Bitart ([place] (7.5-325)) 1 tab Q4H PRN PO MODERATE PAIN LEVEL 4-6 Last administered on 02/13/19at 12:42; Admin Dose 1 TAB; Start 02/13/19 at 13:00 KAREN SHARIF NP Feb 13, 2019 14:56
--- NOTE | 2019-02-13 15:15 | CONS ---
Consult Date/Type/Reason Admit Date/Time Feb 11, 2019 at 21:00 Initial Consult Date 02/12/19 Type of Consultation: Urology Reason for Consultation Right ureteral JJ stent and recurrent urinary tract infections Requesting Provider: BIB RUGGIERO MD Date/Time of Note DATE: 02/13/19 TIME: 15:12 Subjective Patient complains of pain. No nausea or vomiting Objective Vitals Vital Signs Date Temp Pulse Resp B/P (MAP) Pulse Ox O2 O2 Flow FiO2 Time Delivery Rate 02/13/19 97.9 75 16 119/63 97 Room Air 14:25 (81) Intake and Output 02/12/19 02/12/19 02/13/19 1515:00 23:00 07:00 IntakeIntake Total 410 ml 900 ml 1140 ml OutputOutput Total 300 ml 700 ml BalanceBalance 110 ml 200 ml 1140 ml Exam Abdomen is soft, there is no abdominal mass palpable. Results/Medications Result Diagram: 02/13/19 0443 02/13/19 0443 Results 24 hrs Laboratory Tests Test 02/13/19 04:43 White Blood Count 4.6 L Red Blood Count 3.72 L Hemoglobin 8.7 L Hematocrit 28.6 L Mean Corpuscular Volume 76.9 L Mean Corpuscular Hemoglobin 23.4 L Mean Corpuscular Hemoglobin Concent 30.4 L Red Cell Distribution Width 14.2 Platelet Count 237 Mean Platelet Volume 10.2 Immature Granulocytes % 0.200 Neutrophils % 50.9 Lymphocytes % 35.6 Monocytes % 10.2 Eosinophils % 2.4 Basophils % 0.7 Nucleated Red Blood Cells % 0.0 Immature Granulocytes # 0.010 Neutrophils # 2.4 Lymphocytes # 1.6 Monocytes # 0.5 Eosinophils # 0.1 Basophils # 0.0 Nucleated Red Blood Cells # 0.0 Sodium Level 142 Potassium Level 4.2 Chloride Level 110 Carbon Dioxide Level 25 Anion Gap 7 Blood Urea Nitrogen 11 Creatinine 0.58 Est Glomerular Filtrat Rate mL/min > 60 Glucose Level 109 Calcium Level 8.4 Phosphorus Level 4.1 Magnesium Level 1.9 Total Bilirubin 0.1 L Direct Bilirubin 0.00 Indirect Bilirubin 0.1 Aspartate Amino Transf (AST/SGOT) 18 Alanine Aminotransferase (ALT/SGPT) 24 Alkaline Phosphatase 67 Total Protein 6.0 L Albumin 3.2 L Globulin 2.80 Albumin/Globulin Ratio 1.14 Home Meds Active Scripts Ondansetron Hcl* (Zofran*) 4 Mg Tablet, 4 MG PO Q6H for NAUSEA AND/OR VOMITING, #30 TAB Prov:VERA GRESHAM Mireille. 01/26/19 Tramadol HCl (Tramadol HCl) 50 Mg Tablet, 50 MG PO Q4 PRN for PAIN, #20 TAB Prov:VERA GRESHAM S. 01/26/19 Reported Medications Ibuprofen* (Ibuprofen*) 800 Mg Tab, 800 MG PO Q6H PRN for PAIN, TAB 01/25/19 Discontinued Scripts Ciprofloxacin Hcl* (Ciprofloxacin Hcl*) 500 Mg Tablet, 500 MG PO BID for 3 Days, TAB Prov:VERA GRESHAM Mireille. 01/26/19 Medications Current Medications Sodium Chloride 1,000 ml @ 100 mls/hr Q10H IV Last administered on 02/13/19at 09:41; Admin Dose 100 MLS/HR; Start 02/11/19 at 20:35 IV Flush (NS 3 ml) 3 ml PER PROTOCOL IV ; Start 02/11/19 at 21:00 Ondansetron HCl (Zofran Inj) 4 mg Q6H PRN IV NAUSEA/VOMITING Last administered on 02/11/19at 20:50; Admin Dose 4 MG; Start 02/11/19 at 21:00 Acetaminophen (Tylenol Tab) 650 mg Q6H PRN PO .PAIN 1-3 OR TEMP; Start 02/11/19 at 21:00 Hydromorphone HCl (Dilaudid) 0.5 mg Q4H PRN IV .SEVERE PAIN 7-10 Last administered on 02/13/19at 13:11; Admin Dose 0.5 MG; Start 02/11/19 at 21:00 Docusate Sodium (Colace) 100 mg Q12H PRN PO .CONSTIPATION; Start 02/11/19 at 21:00 Bisacodyl (Dulcolax) 5 mg DAILY PRN PO .CONSTIPATION; Start 02/11/19 at 21:00 Tamsulosin HCl (Flomax) 0.4 mg HS PO Last administered on 02/12/19at 21:28; Admin Dose 0.4 MG; Start 02/12/19 at 03:30 Ketorolac Tromethamine (Toradol) 15 mg Q6H PRN IV PAIN Last administered on 02/13/19at 06:58; Admin Dose 15 MG; Start 02/12/19 at 03:30; Stop 02/15/19 at 03:29 Ceftriaxone Sodium 50 ml @ 100 mls/hr Q24H IVPB Last administered on 02/12/19at 14:02; Admin Dose 100 MLS/HR; Start 02/12/19 at 14:00 Ferric Sodium Gluconate Complex 125 mg/Sodium Chloride 100 ml @ 100 mls/hr D AILY@1300 IVPB Last administered on 02/13/19at 13:10; Admin Dose 100 MLS/HR; Start 02/12/19 at 15:00; Stop 02/14/19 at 13:59 Acetaminophen/ Hydrocodone Bitart ([place] (7.5-325)) 1 tab Q4H PRN PO MODERATE PAIN LEVEL 4-6 Last administered on 02/13/19at 12:42; Admin Dose 1 TAB; Start 02/13/19 at 13:00 Assessment/Plan Hospital Course (Demo Recall) This is a 49-year-old female who back in November 2018 and underwent surgery for ureteral stones at [facility]. She states she did have a JJ stent in the left ureter which was attached to a string that was brought out through her urethra she also had another JJ stent on the right side but that one was kept indwelling without the string attached to it since then the left ureteral stent was removed and she was told by the doctors at [facility] that she needs to keep her right ureteral JJ stent longer. She states that every time she goes over there and last time was on February 08 they keep telling her to wait another 2 weeks. Question is if there was any ureteral injury that required to have the JJ stent for a long time to allow the ureter to heal. The patient does not know of any problem like that. She has been to different hospital since including [facility] and [facility] and [facility]. The patient presented to this hospital now because of back pain. I tried to find out from the patient to why they keep telling her to wait another 2 weeks before they remove the JJ stent. There could be a possibility of ureteral injury and the wait is to allow that to heal. For now treat her infection, encourage p.o. fluids and a request to obtain her records from [facility] was faxed and I am told they will not do it at the other hospital till Friday. If there is no issue of ureteral injury then we could go ahead and do a cystoscopy and remove the JJ stent. BEST ARTIS MD Feb 13, 2019 15:15
[2019-02-13] MEDS: CEFTRIAXONE 1 GM/50 ML (PMX) 50 ML IVPB SCH (17:21)
[2019-02-13 20:00] VITALS: BP 113/61; PULSE 65; RESP 18
[2019-02-13] MEDS: TAMSULOSIN (SR) 0.4 MG CAP PO SCH (20:09)
[2019-02-14] MEDS: HYDROmorphONE 0.5 MG/0.5 ML SYG IV PRN ×5 (01:52→23:28)
[2019-02-14 02:00] VITALS: BP 101/61; PULSE 75; RESP 18
[2019-02-14] MEDS: HYDROCODONE/APAP (7.5/325) TAB PO PRN ×4 (05:24→19:03)
--- NOTE | 2019-02-14 07:09 | PN ---
Date/Time of Note Date/Time of Note DATE: 02/14/19 TIME: 07:08 Assessment/Plan VTE Prophylaxis Risk score (from Nsg)>0 risk: 3 SCD applied (from Nsg): Yes Pharmacological prophylaxis: NA/contraindicated Pharm contraindication: low risk/ambulating Lines/Catheters IV Catheter Type (from Nrsg): Peripheral IV Assessment/Plan Hospital Course SUBJECTIVE: Continues to complain of dysuria and hematuria. OBJECTIVE: Physical Exam General: Adequately build 49 year-old female lying in bed in no apparent distress. HEENT: Normocephalic, atraumatic. Eyes: Anicteric sclerae, conjunctivae clear. ENT: Nasal septum midline, oral mucosa moist. Neck supple, no JVD noticed. Respiratory: Bilaterally clear breath sounds. No use of accessory muscles of respiration. No adventitious breath sounds. Cardiovascular: S1, S2 heard. Regular rate and rhythm. Abdomen: Soft, nontender, and nondistended. Bowel sounds positive in all 4 quadrants. Genitourinary: Right CVA tenderness. Extremities: No cyanosis, no clubbing, no edema. Peripheral pulses palpable. Neurologic: Cranial nerves II through XII grossly intact. The patient is awake, alert, and oriented. Skin: Normal skin turgor. No skin rashes. Labs & Vitals per chart ASSESSMENT & PLAN 49-year-old female with past medical history of nephrolithiasis, status post JJ stent placement in November 2018 at [facility]. The patient went to [facility] complaining of right-sided flank pain, hematuria, and dysuria. CT scan done at the transferring facility showed right ureteral stent, IUD, and mild right hydronephrosis. The patient was transferred to [facility] because of insurance reasons. 1. Right sided-pyelonephritis. -Possibly infected JJ stent. -Continue antimicrobials. -Await final cultures. -Continue IV hydration. 2. History of nephrolithiasis, status post previous stent placement. -Urology consult has been obtained. 3. Microcytic, hypochromic anemia. -Iron panel showing iron deficiency. -Start iron supplements. 4. Obesity. -BMI more than 33 kg/m. -A1c 5.7. -Weight reduction advised. 5. Fluids, electrolytes, and nutrition. - Regular diet. 6. DVT prophylaxis -Bilateral SCDs 7. Plan. -Continue empiric antimicrobials -Continue IV fluids -Await final cultures. -Obtain urine cultures from [facility] (medical records not open until Friday). -Awaiting records from [facility] (medical records not open until Friday). The patient was seen in collaboration with Dr. Rodriguez. Result Diagram: 02/14/1944002/14/191 Results 24hrs Laboratory Tests Test 02/14/19 04:41 White Blood Count 4.0 L Red Blood Count 3.68 L Hemoglobin 8.7 L Hematocrit 28.5 L Mean Corpuscular Volume 77.4 L Mean Corpuscular Hemoglobin 23.6 L Mean Corpuscular Hemoglobin Concent 30.5 L Red Cell Distribution Width 14.3 Platelet Count 249 Mean Platelet Volume 10.2 Immature Granulocytes % 0.200 Neutrophils % 41.2 Lymphocytes % 44.6 Monocytes % 9.5 Eosinophils % 3.5 Basophils % 1.0 Nucleated Red Blood Cells % 0.0 Immature Granulocytes # 0.010 Neutrophils # 1.7 Lymphocytes # 1.8 Monocytes # 0.4 Eosinophils # 0.1 Basophils # 0.0 Nucleated Red Blood Cells # 0.0 Sodium Level 141 Potassium Level 3.8 Chloride Level 109 Carbon Dioxide Level 24 Anion Gap 8 Blood Urea Nitrogen 6 L Creatinine 0.49 Est Glomerular Filtrat Rate mL/min > 60 Glucose Level 96 Calcium Level 8.7 Phosphorus Level 4.1 Magnesium Level 2.0 Total Bilirubin 0.1 L Direct Bilirubin 0.00 Indirect Bilirubin 0.1 Aspartate Amino Transf (AST/SGOT) 19 Alanine Aminotransferase (ALT/SGPT) 18 Alkaline Phosphatase 67 Total Protein 5.9 L Albumin 3.2 L Globulin 2.70 Albumin/Globulin Ratio 1.18 Exam/Review of Systems Exam Vitals Vital Signs Date Temp Pulse Resp B/P (MAP) Pulse Ox O2 O2 Flow FiO2 Time Delivery Rate 02/14/19 97.7 75 18 101/61 98 02:00 (74) 02/13/19 Room Air 14:25 Intake and Output 02/13/19 02/13/19 02/14/19 1515:00 23:00 07:00 IntakeIntake Total 900 ml 1350 ml 600 ml BalanceBalance 900 ml 1350 ml 600 ml Results Results 24hrs Laboratory Tests Test 02/14/19 04:41 White Blood Count 4.0 L Red Blood Count 3.68 L Hemoglobin 8.7 L Hematocrit 28.5 L Mean Corpuscular Volume 77.4 L Mean Corpuscular Hemoglobin 23.6 L Mean Corpuscular Hemoglobin Concent 30.5 L Red Cell Distribution Width 14.3 Platelet Count 249 Mean Platelet Volume 10.2 Immature Granulocytes % 0.200 Neutrophils % 41.2 Lymphocytes % 44.6 Monocytes % 9.5 Eosinophils % 3.5 Basophils % 1.0 Nucleated Red Blood Cells % 0.0 Immature Granulocytes # 0.010 Neutrophils # 1.7 Lymphocytes # 1.8 Monocytes # 0.4 Eosinophils # 0.1 Basophils # 0.0 Nucleated Red Blood Cells # 0.0 Sodium Level 141 Potassium Level 3.8 Chloride Level 109 Carbon Dioxide Level 24 Anion Gap 8 Blood Urea Nitrogen 6 L Creatinine 0.49 Est Glomerular Filtrat Rate mL/min > 60 Glucose Level 96 Calcium Level 8.7 Phosphorus Level 4.1 Magnesium Level 2.0 Total Bilirubin 0.1 L Direct Bilirubin 0.00 Indirect Bilirubin 0.1 Aspartate Amino Transf (AST/SGOT) 19 Alanine Aminotransferase (ALT/SGPT) 18 Alkaline Phosphatase 67 Total Protein 5.9 L Albumin 3.2 L Globulin 2.70 Albumin/Globulin Ratio 1.18 Medications Medication Current Medications Sodium Chloride 1,000 ml @ 100 mls/hr Q10H IV Last administered on 02/13/19at 22:14; Admin Dose 100 MLS/HR; Start 02/11/19 at 20:35 IV Flush (NS 3 ml) 3 ml PER PROTOCOL IV ; Start 02/11/19 at 21:00 Ondansetron HCl (Zofran Inj) 4 mg Q6H PRN IV NAUSEA/VOMITING Last administered on 02/11/19at 20:50; Admin Dose 4 MG; Start 02/11/19 at 21:00 Acetaminophen (Tylenol Tab) 650 mg Q6H PRN PO .PAIN 1-3 OR TEMP; Start 02/11/19 at 21:00 Hydromorphone HCl (Dilaudid) 0.5 mg Q4H PRN IV .SEVERE PAIN 7-10 Last administered on 02/14/19at 01:52; Admin Dose 0.5 MG; Start 02/11/19 at 21:00 Docusate Sodium (Colace) 100 mg Q12H PRN PO .CONSTIPATION; Start 02/11/19 at 21:00 Bisacodyl (Dulcolax) 5 mg DAILY PRN PO .CONSTIPATION; Start 02/11/19 at 21:00 Tamsulosin HCl (Flomax) 0.4 mg HS PO Last administered on 02/13/19at 20:09; Admin Dose 0.4 MG; Start 02/12/19 at 03:30 Ketorolac Tromethamine (Toradol) 15 mg Q6H PRN IV PAIN Last administered on 02/13/19at 23:59; Admin Dose 15 MG; Start 02/12/19 at 03:30; Stop 02/15/19 at 03:29 Ceftriaxone Sodium 50 ml @ 100 mls/hr Q24H IVPB Last administered on 02/13/19at 17:21; Admin Dose 100 MLS/HR; Start 02/12/19 at 14:00 Ferric Sodium Gluconate Complex 125 mg/Sodium Chloride 100 ml @ 100 mls/hr DAILY@1300 IVPB Last administered on 02/13/19at 13:10; Admin Dose 100 MLS/HR; Start 02/12/19 at 15:00; Stop 02/14/19 at 13:59 Acetaminophen/ Hydrocodone Bitart ([place] (7.5-325)) 1 tab Q4H PRN PO MODERATE PAIN LEVEL 4-6 Last administered on 02/14/19at 05:24; Admin Dose 1 TAB; Start 02/13/19 at 13:00 Docusate Sodium (Colace) 100 mg BID PO ; Start 02/14/19 at 09:00 Polyethylene Glycol (Miralax) 17 gm DAILY PO ; Start 02/14/19 at 09:00 KAREN SHARIF NP Feb 14, 2019 07:09
[2019-02-14 08:14] VITALS: BP 131/80; PULSE 83; RESP 17
[2019-02-14] MEDS: DOCUSATE SODIUM 100 MG CAP PO SCH ×2 (09:07→21:06)
[2019-02-14] MEDS: SOD CHLORIDE 0.9% 1,000 ML IV SCH ×3 (09:07→23:28)
[2019-02-14] MEDS: POLYETHYLENE GLYCOL 17 GM PACKET PO SCH (09:07)
[2019-02-14] MEDS: SOD FERRIC GLUC COMPLX 125 MG in SOD CHLORIDE 0.9% 100 ML IVPB SCH (13:11)
[2019-02-14] MEDS: CEFTRIAXONE 1 GM/50 ML (PMX) 50 ML IVPB SCH (14:42)
[2019-02-14 20:00] VITALS: BP 128/66; PULSE 68; RESP 18
[2019-02-14] MEDS: TAMSULOSIN (SR) 0.4 MG CAP PO SCH (21:06)
[2019-02-15] MEDS: HYDROCODONE/APAP (7.5/325) TAB PO PRN ×3 (00:46→21:19)
[2019-02-15 02:00] VITALS: BP 98/55; PULSE 69; RESP 18
[2019-02-15] MEDS: HYDROmorphONE 0.5 MG/0.5 ML SYG IV PRN ×5 (05:31→22:50)
[2019-02-15 08:06] VITALS: BP 130/76; PULSE 73; RESP 16
--- NOTE | 2019-02-15 08:32 | CONS ---
Consult Date/Type/Reason Admit Date/Time Feb 11, 2019 at 21:00 Initial Consult Date 02/12/19 Type of Consultation: Urology Reason for Consultation Right ureteral JJ stent Requesting Provider: BIB RUGGIERO MD Date/Time of Note DATE: 02/15/19 TIME: 08:30 Subjective Patient is comfortable, her pain is less. Objective Vitals Vital Signs Date Temp Pulse Resp B/P (MAP) Pulse Ox O2 O2 Flow FiO2 Time Delivery Rate 02/15/19 98.0 73 16 130/76 94 08:06 (94) 02/14/19 Room Air 08:14 Intake and Output 02/14/19 02/14/19 02/15/19 1515:00 23:00 07:00 IntakeIntake Total 1000 ml 550 ml 1100 ml BalanceBalance 1000 ml 550 ml 1100 ml Exam Patient is feeling better. She still has pain Results/Medications Result Diagram: 02/15/19 0536 02/15/19 0536 Results 24 hrs Laboratory Tests Test 02/15/19 05:36 White Blood Count 4.2 L Red Blood Count 3.96 L Hemoglobin 9.4 L Hematocrit 30.6 L Mean Corpuscular Volume 77.3 L Mean Corpuscular Hemoglobin 23.7 L Mean Corpuscular Hemoglobin Concent 30.7 L Red Cell Distribution Width 14.4 Platelet Count 270 Mean Platelet Volume 10.2 Immature Granulocytes % 0.500 H Neutrophils % 41.9 Lymphocytes % 45.8 Monocytes % 8.7 Eosinophils % 2.4 Basophils % 0.7 Nucleated Red Blood Cells % 0.0 Immature Granulocytes # 0.020 Neutrophils # 1.7 Lymphocytes # 1.9 Monocytes # 0.4 Eosinophils # 0.1 Basophils # 0.0 Nucleated Red Blood Cells # 0.0 Sodium Level 141 Potassium Level 3.9 Chloride Level 109 Carbon Dioxide Level 26 Anion Gap 6 Blood Urea Nitrogen 7 Creatinine 0.58 Est Glomerular Filtrat Rate mL/min > 60 Glucose Level 87 Calcium Level 8.9 Phosphorus Level 4.7 Magnesium Level 1.9 Total Bilirubin 0.2 Direct Bilirubin 0.00 Indirect Bilirubin 0.2 Aspartate Amino Transf (AST/SGOT) 20 Alanine Aminotransferase (ALT/SGPT) 26 Alkaline Phosphatase 73 Total Protein 6.3 Albumin 3.6 Globulin 2.70 Albumin/Globulin Ratio 1.33 Home Meds Active Scripts Ondansetron Hcl* (Zofran*) 4 Mg Tablet, 4 MG PO Q6H for NAUSEA AND/OR VOMITING, #30 TAB Prov:VERA GRESHAM S. 01/26/19 Tramadol HCl (Tramadol HCl) 50 Mg Tablet, 50 MG PO Q4 PRN for PAIN, #20 TAB Prov:VERA GRESHAM S. 01/26/19 Reported Medications Ibuprofen* (Ibuprofen*) 800 Mg Tab, 800 MG PO Q6H PRN for PAIN, TAB 01/25/19 Discontinued Scripts Ciprofloxacin Hcl* (Ciprofloxacin Hcl*) 500 Mg Tablet, 500 MG PO BID for 3 Days, TAB Prov:VERA GRESHAM S. 01/26/19 Medications Current Medications Sodium Chloride 1,000 ml @ 100 mls/hr Q10H IV Last administered on 02/14/19at 23:28; Admin Dose 100 MLS/HR; Start 02/11/19 at 20:35 IV Flush (NS 3 ml) 3 ml PER PROTOCOL IV ; Start 02/11/19 at 21:00 Ondansetron HCl (Zofran Inj) 4 mg Q6H PRN IV NAUSEA/VOMITING Last administered on 02/11/19at 20:50; Admin Dose 4 MG; Start 02/11/19 at 21:00 Acetaminophen (Tylenol Tab) 650 mg Q6H PRN PO .PAIN 1-3 OR TEMP; Start 02/11/19 at 21:00 Hydromorphone HCl (Dilaudid) 0.5 mg Q4H PRN IV .SEVERE PAIN 7-10 Last administered on 02/15/19at 05:31; Admin Dose 0.5 MG; Start 02/11/19 at 21:00 Docusate Sodium (Colace) 100 mg Q12H PRN PO .CONSTIPATION; Start 02/11/19 at 21:00 Bisacodyl (Dulcolax) 5 mg DAILY PRN PO .CONSTIPATION; Start 02/11/19 at 21:00 Tamsulosin HCl (Flomax) 0.4 mg HS PO Last administered on 02/14/19at 21:06; Admin Dose 0.4 MG; Start 02/12/19 at 03:30 Ceftriaxone Sodium 50 ml @ 100 mls/hr Q24H IVPB Last administered on 02/14/19at 14:42; Admin Dose 100 MLS/HR; Start 02/12/19 at 14:00 Acetaminophen/ Hydrocodone Bitart ([place] (7.5-325)) 1 tab Q4H PRN PO MODERATE PAIN LEVEL 4-6 Last administered on 02/15/19at 00:46; Admin Dose 1 TAB; Start 02/13/19 at 13:00 Docusate Sodium (Colace) 100 mg BID PO Last administered on 02/14/19at 21:06; Admin Dose 100 MG; Start 02/14/19 at 09:00 Polyethylene Glycol (Miralax) 17 gm DAILY PO Last administered on 02/14/19at 09:07; Admin Dose 17 GM; Start 02/14/19 at 09:00 Assessment/Plan Hospital Course (Demo Recall) This is a 49-year-old female who back in November 2018 and underwent surgery for ureteral stones at [facility]. She states she did have a JJ stent in the left ureter which was attached to a string that was brought out through her urethra she also had another JJ stent on the right side but that one was kept indwelling without the string attached to it since then the left ureteral stent was removed and she was told by the doctors at [facility] that she needs to keep her right ureteral JJ stent longer. She states that every time she goes over there and last time was on February 08 they keep telling her to wait another 2 weeks. Question is if there was any ureteral injury that required to have the JJ stent for a long time to allow the ureter to heal. The patient does not know of any problem like that. She has been to different hospital since including [facility] and [facility] and [facility]. The patient presented to this hospital now because of back pain. I tried to find out from the patient to why they keep telling her to wait another 2 weeks before they remove the JJ stent. There could be a possibility of ureteral injury and the wait is to allow that to heal. For now treat her infection, encourage p.o. fluids and a request to obtain her records from [facility] was faxed and the staff will try to get these records today. Based on the findings we will decide whether to take the stent now or later BEST ARTIS MD Feb 15, 2019 08:32
[2019-02-15] MEDS: POLYETHYLENE GLYCOL 17 GM PACKET PO SCH (09:03)
[2019-02-15] MEDS: DOCUSATE SODIUM 100 MG CAP PO SCH ×2 (09:03→21:16)
[2019-02-15] MEDS: SOD CHLORIDE 0.9% 1,000 ML IV SCH ×2 (10:02→21:20)
[2019-02-15] MEDS: CEFTRIAXONE 1 GM/50 ML (PMX) 50 ML IVPB SCH (14:04)
--- NOTE | 2019-02-15 14:35 | PN ---
Date/Time of Note Date/Time of Note DATE: 02/15/19 TIME: 14:33 Assessment/Plan VTE Prophylaxis Risk score (from Ns)>0 risk: 4 SCD applied (from Ns): Yes SCD contraindicated: low risk/ambulating Pharmacological prophylaxis: NA/contraindicated Pharm contraindication: surgical contra Lines/Catheters IV Catheter Type (from [facility]): Peripheral IV Assessment/Plan Hospital Course Assessment and plan 1. Pyelonephritis, stable, appreciate urology assistance. Continue antibiotics. 2. History of bilateral ureteral stents, follow-up on old records. Will remove right stent if there was no history of injury. -Low perioperative risk, risk benefit ratio weighs in favor of proceeding forward to urology procedure should patient agree. 3. Chronic nephrolithiasis apparently asymptomatic at this time 4. Anemia, continue iron replacement therapy Subjective: Minimal pain. Nausea vomiting fever or toxicity. No chest pain dyspnea Objective: Vital signs stable Physical exam No pallor JVD adenopathy Regular Clear Overweight; mild bilateral CVAT a No edema Result Diagram: 02/15/19 0536 02/15/19 0536 Results 24hrs Laboratory Tests Test 02/15/19 05:36 White Blood Count 4.2 L Red Blood Count 3.96 L Hemoglobin 9.4 L Hematocrit 30.6 L Mean Corpuscular Volume 77.3 L Mean Corpuscular Hemoglobin 23.7 L Mean Corpuscular Hemoglobin Concent 30.7 L Red Cell Distribution Width 14.4 Platelet Count 270 Mean Platelet Volume 10.2 Immature Granulocytes % 0.500 H Neutrophils % 41.9 Lymphocytes % 45.8 Monocytes % 8.7 Eosinophils % 2.4 Basophils % 0.7 Nucleated Red Blood Cells % 0.0 Immature Granulocytes # 0.020 Neutrophils # 1.7 Lymphocytes # 1.9 Monocytes # 0.4 Eosinophils # 0.1 Basophils # 0.0 Nucleated Red Blood Cells # 0.0 Sodium Level 141 Potassium Level 3.9 Chloride Level 109 Carbon Dioxide Level 26 Anion Gap 6 Blood Urea Nitrogen 7 Creatinine 0.58 Est Glomerular Filtrat Rate mL/min > 60 Glucose Level 87 Calcium Level 8.9 Phosphorus Level 4.7 Magnesium Level 1.9 Total Bilirubin 0.2 Direct Bilirubin 0.00 Indirect Bilirubin 0.2 Aspartate Amino Transf (AST/SGOT) 20 Alanine Aminotransferase (ALT/SGPT) 26 Alkaline Phosphatase 73 Total Protein 6.3 Albumin 3.6 Globulin 2.70 Albumin/Globulin Ratio 1.33 Exam/Review of Systems Exam Vitals Vital Signs Date Temp Pulse Resp B/P (MAP) Pulse Ox O2 O2 Flow FiO2 Time Delivery Rate 02/15/19 98.0 73 16 130/76 94 08:06 (94) 02/14/19 Room Air 08:14 Intake and Output 02/14/19 02/14/19 02/15/19 1414:59 22:59 06:59 IntakeIntake Total 1000 ml 550 ml 1100 ml BalanceBalance 1000 ml 550 ml 1100 ml Results Results 24hrs Laboratory Tests Test 02/15/19 05:36 White Blood Count 4.2 L Red Blood Count 3.96 L Hemoglobin 9.4 L Hematocrit 30.6 L Mean Corpuscular Volume 77.3 L Mean Corpuscular Hemoglobin 23.7 L Mean Corpuscular Hemoglobin Concent 30.7 L Red Cell Distribution Width 14.4 Platelet Count 270 Mean Platelet Volume 10.2 Immature Granulocytes % 0.500 H Neutrophils % 41.9 Lymphocytes % 45.8 Monocytes % 8.7 Eosinophils % 2.4 Basophils % 0.7 Nucleated Red Blood Cells % 0.0 Immature Granulocytes # 0.020 Neutrophils # 1.7 Lymphocytes # 1.9 Monocytes # 0.4 Eosinophils # 0.1 Basophils # 0.0 Nucleated Red Blood Cells # 0.0 Sodium Level 141 Potassium Level 3.9 Chloride Level 109 Carbon Dioxide Level 26 Anion Gap 6 Blood Urea Nitrogen 7 Creatinine 0.58 Est Glomerular Filtrat Rate mL/min > 60 Glucose Level 87 Calcium Level 8.9 Phosphorus Level 4.7 Magnesium Level 1.9 Total Bilirubin 0.2 Direct Bilirubin 0.00 Indirect Bilirubin 0.2 Aspartate Amino Transf (AST/SGOT) 20 Alanine Aminotransferase (ALT/SGPT) 26 Alkaline Phosphatase 73 Total Protein 6.3 Albumin 3.6 Globulin 2.70 Albumin/Globulin Ratio 1.33 Medications Medication Current Medications Sodium Chloride 1,000 ml @ 100 mls/hr Q10H IV Last administered on 02/15/19at 10:02; Admin Dose 100 MLS/HR; Start 02/11/19 at 20:35 IV Flush (NS 3 ml) 3 ml PER PROTOCOL IV ; Start 02/11/19 at 21:00 Ondansetron HCl (Zofran Inj) 4 mg Q6H PRN IV NAUSEA/VOMITING Last administered on 02/11/19at 20:50; Admin Dose 4 MG; Start 02/11/19 at 21:00 Acetaminophen (Tylenol Tab) 650 mg Q6H PRN PO .PAIN 1-3 OR TEMP; Start 02/11/19 at 21:00 Hydromorphone HCl (Dilaudid) 0.5 mg Q4H PRN IV .SEVERE PAIN 7-10 Last administered on 02/15/19 14:02; Admin Dose 0.5 MG; Start 02/11/19 at 21:00 Docusate Sodium (Colace) 100 mg Q12H PRN PO .CONSTIPATION Last administered on 02/15/19 09:03; Admin Dose 100 MG; Start 02/11/19 at 21:00 Bisacodyl (Dulcolax) 5 mg DAILY PRN PO .CONSTIPATION Last administered on 02/15/19 09:03; Admin Dose 5 MG; Start 02/11/19 at 21:00 Tamsulosin HCl (Flomax) 0.4 mg HS PO Last administered on 02/14/19 21:06; Admin Dose 0.4 MG; Start 02/12/19 at 03:30 Ceftriaxone Sodium 50 ml @ 100 mls/hr Q24H IVPB Last administered on 02/15/19 14:04; Admin Dose 100 MLS/HR; Start 02/12/19 at 14:00 Acetaminophen/ Hydrocodone Bitart ([place] (7.5-325)) 1 tab Q4H PRN PO MODERATE PAIN LEVEL 4-6 Last administered on 02/15/19 09:03; Admin Dose 1 TAB; Start 02/13/19 at 13:00 Docusate Sodium (Colace) 100 mg BID PO Last administered on 02/15/19 09:03; Admin Dose 100 MG; Start 02/14/19 at 09:00 Polyethylene Glycol (Miralax) 17 gm DAILY PO Last administered on 02/15/19 09:03; Admin Dose 17 GM; Start 02/14/19 at 09:00 CHASTITY GAN MD Feb 15, 2019 14:35
[2019-02-15 14:37] VITALS: BP 113/66; PULSE 69; RESP 16
[2019-02-15] MEDS: ONDANSETRON 4 MG INJ IV PRN (15:13)
[2019-02-15 19:52] VITALS: BP 117/58; PULSE 76; RESP 18
[2019-02-15] MEDS: TAMSULOSIN (SR) 0.4 MG CAP PO SCH (21:16)
[2019-02-16 02:18] VITALS: BP 123/61; PULSE 72; RESP 18
[2019-02-16] MEDS: HYDROmorphONE 0.5 MG/0.5 ML SYG IV PRN ×5 (04:26→21:53)
[2019-02-16] MEDS: ONDANSETRON 4 MG INJ IV PRN (05:52)
[2019-02-16] MEDS: SOD CHLORIDE 0.9% 1,000 ML IV SCH ×2 (07:07→20:35)
[2019-02-16 08:42] VITALS: BP 116/62; PULSE 85; RESP 18
[2019-02-16] MEDS: DOCUSATE SODIUM 100 MG CAP PO SCH ×2 (08:53→20:22)
[2019-02-16] MEDS: POLYETHYLENE GLYCOL 17 GM PACKET PO SCH (08:53)
[2019-02-16] MEDS: CEFTRIAXONE 1 GM/50 ML (PMX) 50 ML IVPB SCH (12:59)
--- NOTE | 2019-02-16 14:00 | PN ---
Date/Time of Note Date/Time of Note DATE: 02/16/19 TIME: 13:56 Assessment/Plan VTE Prophylaxis Risk score (from Ns)>0 risk: 3 SCD applied (from Ns): Yes SCD contraindicated: low risk/ambulating Pharmacological prophylaxis: NA/contraindicated Pharm contraindication: surgical contra Lines/Catheters [facility] Peripheral IV Assessment/Plan Hospital Course Assessment and plan 1. AcPyelonephritis, stable Continue antibiotics. 2. H/o bilateral ureteral stents, follow-up on [facility] records [Oct; was last name Sae? Saw a Dr Deep Maxwell?]. Rt stent removal if there was no h/o of injury. -Low perioperative risk, risk benefit ratio weighs in favor of proceeding forward to urology procedure should patient agree. 3. Chr nephrolithiasis apparently asymptomatic at this time 4. Anemia, continue iron replacement therapy S: 4/8 min pain. Nausea vomiting fever or toxicity. No chest pain dyspnea 02/16: No distress. Occasional nausea. Dark urine? Poor appetite probably due to the foods that she is receiving not her medical condition O: Vital signs stable Physical exam No pallor Regular Clear Overweight; mild bilateral CVAT No edema Result Diagram: 02/16/19 0551 02/16/19 0551 Results 24hrs Laboratory Tests Test 02/16/19 05:51 White Blood Count 4.7 L Red Blood Count 4.45 Hemoglobin 10.5 L Hematocrit 34.3 L Mean Corpuscular Volume 77.1 L Mean Corpuscular Hemoglobin 23.6 L Mean Corpuscular Hemoglobin Concent 30.6 L Red Cell Distribution Width 14.6 H Platelet Count 299 Mean Platelet Volume 9.8 Immature Granulocytes % 0.400 Neutrophils % 50.8 Lymphocytes % 37.4 Monocytes % 8.2 Eosinophils % 2.1 Basophils % 1.1 Nucleated Red Blood Cells % 0.0 Immature Granulocytes # 0.020 Neutrophils # 2.4 Lymphocytes # 1.8 Monocytes # 0.4 Eosinophils # 0.1 Basophils # 0.1 Nucleated Red Blood Cells # 0.0 Prothrombin Time 12.7 Prothrombin Time Ratio 1.0 INR International Normalized Ratio 0.94 Sodium Level 140 Potassium Level 4.2 Chloride Level 106 Carbon Dioxide Level 24 Anion Gap 10 Blood Urea Nitrogen 9 Creatinine 0.57 Est Glomerular Filtrat Rate mL/min > 60 Glucose Level 107 Hemoglobin A1c 5.6 Calcium Level 9.3 Total Bilirubin 0.1 L Direct Bilirubin 0.00 Indirect Bilirubin 0.1 Aspartate Amino Transf (AST/SGOT) 27 Alanine Aminotransferase (ALT/SGPT) 24 Alkaline Phosphatase 77 Total Protein 7.1 Albumin 4.0 Globulin 3.10 Albumin/Globulin Ratio 1.29 Thyroid Stimulating Hormone (TSH) 2.880 Serum HCG, Qualitative NEGATIVE Exam/Review of Systems Exam Vitals Vital Signs Date Temp Pulse Resp B/P (MAP) Pulse Ox O2 O2 Flow FiO2 Time Delivery Rate 02/16/19 98.7 85 18 116/62 96 Room Air 08:42 (80) Intake and Output 02/15/19 02/15/19 02/16/19 1515:00 23:00 07:00 IntakeIntake Total 690 ml 2200 ml 800 ml OutputOutput Total 600 ml 600 ml 900 ml BalanceBalance 90 ml 1600 ml -100 ml Results Results 24hrs Laboratory Tests Test 02/16/19 05:51 White Blood Count 4.7 L Red Blood Count 4.45 Hemoglobin 10.5 L Hematocrit 34.3 L Mean Corpuscular Volume 77.1 L Mean Corpuscular Hemoglobin 23.6 L Mean Corpuscular Hemoglobin Concent 30.6 L Red Cell Distribution Width 14.6 H Platelet Count 299 Mean Platelet Volume 9.8 Immature Granulocytes % 0.400 Neutrophils % 50.8 Lymphocytes % 37.4 Monocytes % 8.2 Eosinophils % 2.1 Basophils % 1.1 Nucleated Red Blood Cells % 0.0 Immature Granulocytes # 0.020 Neutrophils # 2.4 Lymphocytes # 1.8 Monocytes # 0.4 Eosinophils # 0.1 Basophils # 0.1 Nucleated Red Blood Cells # 0.0 Prothrombin Time 12.7 Prothrombin Time Ratio 1.0 INR International Normalized Ratio 0.94 Sodium Level 140 Potassium Level 4.2 Chloride Level 106 Carbon Dioxide Level 24 Anion Gap 10 Blood Urea Nitrogen 9 Creatinine 0.57 Est Glomerular Filtrat Rate mL/min > 60 Glucose Level 107 Hemoglobin A1c 5.6 Calcium Level 9.3 Total Bilirubin 0.1 L Direct Bilirubin 0.00 Indirect Bilirubin 0.1 Aspartate Amino Transf (AST/SGOT) 27 Alanine Aminotransferase (ALT/SGPT) 24 Alkaline Phosphatase 77 Total Protein 7.1 Albumin 4.0 Globulin 3.10 Albumin/Globulin Ratio 1.29 Thyroid Stimulating Hormone (TSH) 2.880 Serum HCG, Qualitative NEGATIVE Medications Medication Current Medications Sodium Chloride 1,000 ml @ 100 mls/hr Q10H IV Last administered on 02/16/19 07:07; Admin Dose 100 MLS/HR; Start 02/11/19 at 20:35 IV Flush (NS 3 ml) 3 ml PER PROTOCOL IV ; Start 02/11/19 at 21:00 Acetaminophen (Tylenol Tab) 650 mg Q6H PRN PO .PAIN 1-3 OR TEMP; Start 02/11/19 at 21:00 Hydromorphone HCl (Dilaudid) 0.5 mg Q4H PRN IV .SEVERE PAIN 7-10 Last administered on 02/16/19 12:59; Admin Dose 0.5 MG; Start 02/11/19 at 21:00 Docusate Sodium (Colace) 100 mg Q12H PRN PO .CONSTIPATION Last administered on 02/15/19 09:03; Admin Dose 100 MG; Start 02/11/19 at 21:00 Bisacodyl (Dulcolax) 5 mg DAILY PRN PO .CONSTIPATION Last administered on 02/15/19 09:03; Admin Dose 5 MG; Start 02/11/19 at 21:00 Tamsulosin HCl (Flomax) 0.4 mg HS PO Last administered on 02/15/19 21:16; Admin Dose 0.4 MG; Start 02/12/19 at 03:30 Ceftriaxone Sodium 50 ml @ 100 mls/hr Q24H IVPB Last administered on 02/16/19 12:59; Admin Dose 100 MLS/HR; Start 02/12/19 at 14:00 Acetaminophen/ Hydrocodone Bitart ([place] (7.5-325)) 1 tab Q4H PRN PO MODERATE PAIN LEVEL 4-6 Last administered on 02/15/19 21:19; Admin Dose 1 TAB; Start 02/13/19 at 13:00 Docusate Sodium (Colace) 100 mg BID PO Last administered on 02/16/19 08:53; Admin Dose 100 MG; Start 02/14/19 at 09:00 Polyethylene Glycol (Miralax) 17 gm DAILY PO Last administered on 02/16/19 08:53; Admin Dose 17 GM; Start 02/14/19 at 09:00 Ondansetron HCl (Zofran Inj) 4 mg Q4H PRN IV NAUSEA AND/OR VOMITING Last administered on 02/16/19at 05:52; Admin Dose 4 MG; Start 02/15/19 at 15:00 CHASTITY GAN MD Feb 16, 2019 14:00
[2019-02-16 15:06] VITALS: BP 135/75; PULSE 80; RESP 18
[2019-02-16] MEDS: TAMSULOSIN (SR) 0.4 MG CAP PO SCH (20:22)
[2019-02-16] MEDS: HYDROCODONE/APAP (7.5/325) TAB PO PRN (20:23)
[2019-02-16 20:46] VITALS: BP 121/91; PULSE 73; RESP 20
--- NOTE | 2019-02-16 22:13 | CONS ---
Consult Date/Type/Reason Admit Date/Time Feb 11, 2019 at 21:00 Initial Consult Date 02/12/19 Type of Consultation: Urology Reason for Consultation Right ureteral JJ stent Requesting Provider: BIB RUGGIERO MD Date/Time of Note DATE: 02/16/19 TIME: 22:10 Subjective Patient is feeling better. She does have mild dysuria Objective Vitals Vital Signs Date Temp Pulse Resp B/P (MAP) Pulse Ox O2 O2 Flow FiO2 Time Delivery Rate 02/16/19 98.1 73 20 121/91 100 20:46 (101) 02/16/19 Room Air 15:06 Intake and Output 02/15/19 02/15/19 02/16/19 1515:00 23:00 07:00 IntakeIntake Total 690 ml 2200 ml 800 ml OutputOutput Total 600 ml 600 ml 900 ml BalanceBalance 90 ml 1600 ml -100 ml Exam Abdomen is soft. There is no flank tenderness. Urine culture is showing enterococcus species. Results/Medications Result Diagram: 02/16/19 0551 02/16/19 0551 Results 24 hrs Laboratory Tests Test 02/16/19 05:51 White Blood Count 4.7 L Red Blood Count 4.45 Hemoglobin 10.5 L Hematocrit 34.3 L Mean Corpuscular Volume 77.1 L Mean Corpuscular Hemoglobin 23.6 L Mean Corpuscular Hemoglobin Concent 30.6 L Red Cell Distribution Width 14.6 H Platelet Count 299 Mean Platelet Volume 9.8 Immature Granulocytes % 0.400 Neutrophils % 50.8 Lymphocytes % 37.4 Monocytes % 8.2 Eosinophils % 2.1 Basophils % 1.1 Nucleated Red Blood Cells % 0.0 Immature Granulocytes # 0.020 Neutrophils # 2.4 Lymphocytes # 1.8 Monocytes # 0.4 Eosinophils # 0.1 Basophils # 0.1 Nucleated Red Blood Cells # 0.0 Prothrombin Time 12.7 Prothrombin Time Ratio 1.0 INR International Normalized Ratio 0.94 Sodium Level 140 Potassium Level 4.2 Chloride Level 106 Carbon Dioxide Level 24 Anion Gap 10 Blood Urea Nitrogen 9 Creatinine 0.57 Est Glomerular Filtrat Rate mL/min > 60 Glucose Level 107 Hemoglobin A1c 5.6 Calcium Level 9.3 Total Bilirubin 0.1 L Direct Bilirubin 0.00 Indirect Bilirubin 0.1 Aspartate Amino Transf (AST/SGOT) 27 Alanine Aminotransferase (ALT/SGPT) 24 Alkaline Phosphatase 77 Total Protein 7.1 Albumin 4.0 Globulin 3.10 Albumin/Globulin Ratio 1.29 Thyroid Stimulating Hormone (TSH) 2.880 Serum HCG, Qualitative NEGATIVE Home Meds Active Scripts Ondansetron Hcl* (Zofran*) 4 Mg Tablet, 4 MG PO Q6H for NAUSEA AND/OR VOMITING, #30 TAB Prov:ERICMALAVERA Greg 01/26/19 Tramadol HCl (Tramadol HCl) 50 Mg Tablet, 50 MG PO Q4 PRN for PAIN, #20 TAB Prov:JAQUELINEANDREAVREA Greg 01/26/19 Reported Medications Ibuprofen* (Ibuprofen*) 800 Mg Tab, 800 MG PO Q6H PRN for PAIN, TAB 01/25/19 Discontinued Scripts Ciprofloxacin Hcl* (Ciprofloxacin Hcl*) 500 Mg Tablet, 500 MG PO BID for 3 Days, TAB Prov:ERICMALAVERA Greg 01/26/19 Medications Current Medications Sodium Chloride 1,000 ml @ 100 mls/hr Q10H IV Last administered on 02/16/19at 07:07; Admin Dose 100 MLS/HR; Start 02/11/19 at 20:35 IV Flush (NS 3 ml) 3 ml PER PROTOCOL IV ; Start 02/11/19 at 21:00 Acetaminophen (Tylenol Tab) 650 mg Q6H PRN PO .PAIN 1-3 OR TEMP; Start 02/11/19 at 21:00 Hydromorphone HCl (Dilaudid) 0.5 mg Q4H PRN IV .SEVERE PAIN 7-10 Last administered on 02/16/19at 21:53; Admin Dose 0.5 MG; Start 02/11/19 at 21:00 Docusate Sodium (Colace) 100 mg Q12H PRN PO .CONSTIPATION Last administered on 02/15/19 09:03; Admin Dose 100 MG; Start 02/11/19 at 21:00 Bisacodyl (Dulcolax) 5 mg DAILY PRN PO .CONSTIPATION Last administered on 02/15/19 09:03; Admin Dose 5 MG; Start 02/11/19 at 21:00 Tamsulosin HCl (Flomax) 0.4 mg HS PO Last administered on 02/16/19at 20:22; Admin Dose 0.4 MG; Start 02/12/19 at 03:30 Ceftriaxone Sodium 50 ml @ 100 mls/hr Q24H IVPB Last administered on 02/16/19at 12:59; Admin Dose 100 MLS/HR; Start 02/12/19 at 14:00 Acetaminophen/ Hydrocodone Bitart ([place] (7.5-325)) 1 tab Q4H PRN PO MODERATE PAIN LEVEL 4-6 Last administered on 02/16/19at 20:23; Admin Dose 1 TAB; Start 02/13/19 at 13:00 Docusate Sodium (Colace) 100 mg BID PO Last administered on 02/16/19at 20:22; Admin Dose 100 MG; Start 02/14/19 at 09:00 Polyethylene Glycol (Miralax) 17 gm DAILY PO Last administered on 02/16/19 08:53; Admin Dose 17 GM; Start 02/14/19 at 09:00 Ondansetron HCl (Zofran Inj) 4 mg Q4H PRN IV NAUSEA AND/OR VOMITING Last administered on 02/16/19at 05:52; Admin Dose 4 MG; Start 02/15/19 at 15:00 Assessment/Plan Hospital Course (Demo Recall) This is a 49-year-old female who back in November 2018 and underwent surgery for ureteral stones at [facility]. She states she did have a JJ stent in the left ureter which was attached to a string that was brought out through her urethra she also had another JJ stent on the right side but that one was kept indwelling without the string attached to it since then the left ureteral stent was removed and she was told by the doctors at [facility] that she needs to keep her right ureteral JJ stent longer. She states that every time she goes over there and last time was on February 08 they keep telling her to wait another 2 weeks. Question is if there was any ureteral injury that required to have the JJ stent for a long time to allow the ureter to heal. The patient does not know of any problem like that. She has been to different hospital since including [facility] and [facility] and [facility]. The patient presented to this hospital now because of back pain. We did obtain the operative report from [facility]. She underwent right ureteroscopy and renoscopy and laser lithotripsy to a right ureteral stone. And had a JJ stent inserted. She did have distal right ureteral stricture that was dilated. I also did review the CT scan that she had at [facility]. There is no evidence of stone in the right ureter or kidney. But I am not sure whether the proximal curl of the stent is calcified or not. I will try to schedule her for the cystoscopy and removal of the JJ stent if time is available tomorrow or the day after. BEST ARTIS MD Feb 16, 2019 22:13
[2019-02-17] MEDS: HYDROmorphONE 0.5 MG/0.5 ML SYG IV PRN ×6 (01:55→22:23)
[2019-02-17 01:59] VITALS: BP 119/71; PULSE 84; RESP 20
[2019-02-17] MEDS: SOD CHLORIDE 0.9% 1,000 ML IV SCH ×2 (04:22→16:49)
[2019-02-17 07:58] VITALS: BP 110/57; PULSE 70; RESP 18
[2019-02-17] MEDS: DOCUSATE SODIUM 100 MG CAP PO SCH ×2 (08:50→21:28)
[2019-02-17] MEDS: POLYETHYLENE GLYCOL 17 GM PACKET PO SCH (08:50)
[2019-02-17] MEDS: HYDROCODONE/APAP (7.5/325) TAB PO PRN ×2 (09:20→16:49)
[2019-02-17 14:14] VITALS: BP 129/73; PULSE 71; RESP 18
[2019-02-17] MEDS: CEFTRIAXONE 1 GM/50 ML (PMX) 50 ML IVPB SCH (14:38)
--- NOTE | 2019-02-17 15:19 | PREAC ---
Date/Time of Note Date/Time of Note DATE: 02/17/19 TIME: 15:17 Anesthesia Eval and Record Evaluation Time Pre-Procedure Interview DATE: 02/17/19 TIME: 15:17 Age 49 Sex female NPO: Other (INSTRUCTED MINIMUM 8 HOUR FASTING PRIOR TO SURGERY) Preoperative diagnosis RIGHT PYELONEPHRITIS Planned procedure CYSTOSCOPY REMOVAL OF RIGHT URETERAL JJ STENT Past Medical History Past Medical History: Includes Renal: Other (RIGHT PYELONEPHRITIS, INFECTED RIGHT URETERAL STENT, HX STONES) GI: Obesity (BMI 33) Heme: Anemia Surgery & Anesthesia Issues No known issue Meds Anticoagulation: No Beta Bear within 24 hr: No Reason Beta Bear not given: Pt. not on B-Bear Active Scripts Ondansetron Hcl* (Zofran*) 4 Mg Tablet, 4 MG PO Q6H for NAUSEA AND/OR VOMITING, #30 TAB Prov:VERA GRESHAM 01/26/19 Tramadol HCl (Tramadol HCl) 50 Mg Tablet, 50 MG PO Q4 PRN for PAIN, #20 TAB Prov:VERA GRESHAM 01/26/19 Reported Medications Ibuprofen* (Ibuprofen*) 800 Mg Tab, 800 MG PO Q6H PRN for PAIN, TAB 01/25/19 Discontinued Scripts Ciprofloxacin Hcl* (Ciprofloxacin Hcl*) 500 Mg Tablet, 500 MG PO BID for 3 Days, TAB Prov:VERA GRESHAM 01/26/19 Current Medications Sodium Chloride 1,000 ml @ 100 mls/hr Q10H IV Last administered on 02/17/19at 04:22; Admin Dose 100 MLS/HR; Start 02/11/19 at 20:35 IV Flush (NS 3 ml) 3 ml PER PROTOCOL IV ; Start 02/11/19 at 21:00 Acetaminophen (Tylenol Tab) 650 mg Q6H PRN PO .PAIN 1-3 OR TEMP; Start 02/11/19 at 21:00 Hydromorphone HCl (Dilaudid) 0.5 mg Q4H PRN IV .SEVERE PAIN 7-10 Last administered on 02/17/19at 14:16; Admin Dose 0.5 MG; Start 02/11/19 at 21:00 Docusate Sodium (Colace) 100 mg Q12H PRN PO .CONSTIPATION Last administered on 02/15/19at 09:03; Admin Dose 100 MG; Start 02/11/19 at 21:00 Bisacodyl (Dulcolax) 5 mg DAILY PRN PO .CONSTIPATION Last administered on 02/15/19 09:03; Admin Dose 5 MG; Start 02/11/19 at 21:00 Tamsulosin HCl (Flomax) 0.4 mg HS PO Last administered on 02/16/19 20:22; Admin Dose 0.4 MG; Start 02/12/19 at 03:30 Ceftriaxone Sodium 50 ml @ 100 mls/hr Q24H IVPB Last administered on 02/17/19 14:38; Admin Dose 100 MLS/HR; Start 02/12/19 at 14:00 Acetaminophen/ Hydrocodone Bitart ([place] (7.5-325)) 1 tab Q4H PRN PO MODERATE PAIN LEVEL 4-6 Last administered on 02/17/19 09:20; Admin Dose 1 TAB; Start 02/13/19 at 13:00 Docusate Sodium (Colace) 100 mg BID PO Last administered on 02/17/19 08:50; Admin Dose 100 MG; Start 02/14/19 at 09:00 Polyethylene Glycol (Miralax) 17 gm DAILY PO Last administered on 02/17/19 08:50; Admin Dose 17 GM; Start 02/14/19 at 09:00 Ondansetron HCl (Zofran Inj) 4 mg Q4H PRN IV NAUSEA AND/OR VOMITING Last administered on 02/16/19 05:52; Admin Dose 4 MG; Start 02/15/19 at 15:00 Meds reviewed: Yes Allergies Coded Allergies: No Known Drug Allergies (Verified Allergy, Unknown, 01/25/19) Allergies Reviewed: Yes Labs/Studies Labs Reviewed: Reviewed by anesthesiologist Result Diagram: 02/16/1955002/16/19550 test: Negative (SERUM HCG NEGATIVE ) Pre-procedure Exam Last vitals Vital Signs Date Temp Pulse Resp B/P (MAP) Pulse Ox O2 O2 Flow FiO2 Time Delivery Rate 02/17/19 97.8 71 18 129/73 98 14:14 (91) 02/16/19 Room Air 15:06 Airway: Adequate mouth opening, Adequate thyromental dist Mallampati: Mallampati II Teeth: Normal Lung: Normal Heart: Normal ASA Physical Status ASA physical status: 2 Emergency: None Planned Anesthetic General/MAC: LMA Planned Pain Management Parenteral pain med, Local by surgeon Pre-operative Attestations Prior to commencing anesthesia and surgery, the patient was re-evaluated, there was verification of: *The patient's identity *The results of appropriate recent lab work and preoperative vital signs *The above evaluation not changing prior to induction *Anesthetic plan, risk benefits, alternative and complications discussed with patient/family; questions answered; patient/family understands, accepts and wishes to proceed. PEDRITO ALICEA Feb 17, 2019 15:19
--- NOTE | 2019-02-17 17:23 | PN ---
Date/Time of Note Date/Time of Note DATE: 02/17/19 TIME: 17:21 Assessment/Plan VTE Prophylaxis Risk score (from Nsg)>0 risk: 3 SCD applied (from Ns): Yes SCD contraindicated: low risk/ambulating Pharmacological prophylaxis: NA/contraindicated Pharm contraindication: surgical contra Lines/Catheters [facility]from [facility] Peripheral IV Assessment/Plan Hospital Course Assessment and plan 1. Ac Pyelonephritis, stable Continue antibiotics. 2. H/o bilateral ureteral stents, [facility] records [Sep/ Oct; was last name Sae? Saw Dr Milan Maxwell?]. Rt stent removal pending. -Low perioperative risk. risk benefit ratio weighs in favor of proceeding forward to urology procedure should patient agree. 3. Chr nephrolithiasis apparently asymptomatic at this time 4. Anemia, continue iron replacement therapy 5. H/o RT ureteral stricture, sp dilatation @ [facility]. S: 4/8 min pain. Nausea vomiting fever or toxicity. No chest pain dyspnea 02/16: No distress. Occasional nausea. Dark urine? Poor appetite probably due to the foods that she is receiving not her medical condition 02/17 no events. Distress fever or chest pain O: Vital signs stable Physical exam No pallor Regular Clear Overweight; mild bilateral CVAT No edema Result Diagram: 02/16/19 0551 02/16/19 0551 Exam/Review of Systems Exam Vitals Vital Signs Date Temp Pulse Resp B/P (MAP) Pulse Ox O2 O2 Flow FiO2 Time Delivery Rate 02/17/19 97.8 71 18 129/73 98 14:14 (91) 02/16/19 Room Air 15:06 Intake and Output 02/16/19 02/16/19 02/17/19 1515:00 23:00 07:00 IntakeIntake Total 1120 ml 500 ml 1050 ml OutputOutput Total 1400 ml 800 ml BalanceBalance -280 ml -300 ml 1050 ml Medications Medication Current Medications Sodium Chloride 1,000 ml @ 100 mls/hr Q10H IV Last administered on 02/17/19at 16:49; Admin Dose 100 MLS/HR; Start 02/11/19 at 20:35 IV Flush (NS 3 ml) 3 ml PER PROTOCOL IV ; Start 02/11/19 at 21:00 Acetaminophen (Tylenol Tab) 650 mg Q6H PRN PO .PAIN 1-3 OR TEMP; Start 02/11/19 at 21:00 Hydromorphone HCl (Dilaudid) 0.5 mg Q4H PRN IV .SEVERE PAIN 7-10 Last administered on 02/17/19 14:16; Admin Dose 0.5 MG; Start 02/11/19 at 21:00 Docusate Sodium (Colace) 100 mg Q12H PRN PO .CONSTIPATION Last administered on 02/15/19 09:03; Admin Dose 100 MG; Start 02/11/19 at 21:00 Bisacodyl (Dulcolax) 5 mg DAILY PRN PO .CONSTIPATION Last administered on 02/15/19 09:03; Admin Dose 5 MG; Start 02/11/19 at 21:00 Tamsulosin HCl (Flomax) 0.4 mg HS PO Last administered on 02/16/19 20:22; Admin Dose 0.4 MG; Start 02/12/19 at 03:30 Ceftriaxone Sodium 50 ml @ 100 mls/hr Q24H IVPB Last administered on 02/17/19 14:38; Admin Dose 100 MLS/HR; Start 02/12/19 at 14:00 Acetaminophen/ Hydrocodone Bitart ([place] (7.5-325)) 1 tab Q4H PRN PO MODERATE PAIN LEVEL 4-6 Last administered on 02/17/19 16:49; Admin Dose 1 TAB; Start 02/13/19 at 13:00 Docusate Sodium (Colace) 100 mg BID PO Last administered on 02/17/19 08:50; Ad min Dose 100 MG; Start 02/14/19 at 09:00 Polyethylene Glycol (Miralax) 17 gm DAILY PO Last administered on 02/17/19 08:50; Admin Dose 17 GM; Start 02/14/19 at 09:00 Ondansetron HCl (Zofran Inj) 4 mg Q4H PRN IV NAUSEA AND/OR VOMITING Last administered on 02/16/19 05:52; Admin Dose 4 MG; Start 02/15/19 at 15:00 CHASTITY GAN MD Feb 17, 2019 17:23
--- NOTE | 2019-02-17 18:38 | CONS ---
Consult Date/Type/Reason Admit Date/Time Feb 11, 2019 at 21:00 Initial Consult Date 02/12/19 Type of Consultation: Urology Reason for Consultation Right ureteral JJ stent Requesting Provider: BIB RUGGIERO MD Date/Time of Note DATE: 02/17/19 TIME: 18:36 Subjective Patient is comfortable on anxious to get the stent out Objective Vitals Vital Signs Date Temp Pulse Resp B/P (MAP) Pulse Ox O2 O2 Flow FiO2 Time Delivery Rate 02/17/19 97.8 71 18 129/73 98 14:14 (91) 02/16/19 Room Air 15:06 Intake and Output 02/16/19 02/16/19 02/17/19 1515:00 23:00 07:00 IntakeIntake Total 1120 ml 500 ml 1050 ml OutputOutput Total 1400 ml 800 ml BalanceBalance -280 ml -300 ml 1050 ml Exam The records from [facility] were reviewed. Urine culture is showing enterococcus sensitive to Cipro. Results/Medications Result Diagram: 02/16/19 0551 02/16/19 0551 Home Meds Active Scripts Ondansetron Hcl* (Zofran*) 4 Mg Tablet, 4 MG PO Q6H for NAUSEA AND/OR VOMITING, #30 TAB Prov:VERA GRESHAM 01/26/19 Tramadol HCl (Tramadol HCl) 50 Mg Tablet, 50 MG PO Q4 PRN for PAIN, #20 TAB Prov:VERA GRESHAM 01/26/19 Reported Medications Ibuprofen* (Ibuprofen*) 800 Mg Tab, 800 MG PO Q6H PRN for PAIN, TAB 01/25/19 Discontinued Scripts Ciprofloxacin Hcl* (Ciprofloxacin Hcl*) 500 Mg Tablet, 500 MG PO BID for 3 Days, TAB Prov:VERA GRESHAM 01/26/19 Medications Current Medications Sodium Chloride 1,000 ml @ 100 mls/hr Q10H IV Last administered on 02/17/19at 16:49; Admin Dose 100 MLS/HR; Start 02/11/19 at 20:35 IV Flush (NS 3 ml) 3 ml PER PROTOCOL IV ; Start 02/11/19 at 21:00 Acetaminophen (Tylenol Tab) 650 mg Q6H PRN PO .PAIN 1-3 OR TEMP; Start 02/11/19 at 21:00 Hydromorphone HCl (Dilaudid) 0.5 mg Q4H PRN IV .SEVERE PAIN 7-10 Last administered on 02/17/19 18:10; Admin Dose 0.5 MG; Start 02/11/19 at 21:00 Docusate Sodium (Colace) 100 mg Q12H PRN PO .CONSTIPATION Last administered on 02/15/19 09:03; Admin Dose 100 MG; Start 02/11/19 at 21:00 Bisacodyl (Dulcolax) 5 mg DAILY PRN PO .CONSTIPATION Last administered on 02/15/19 09:03; Admin Dose 5 MG; Start 02/11/19 at 21:00 Tamsulosin HCl (Flomax) 0.4 mg HS PO Last administered on 02/16/19 20:22; Admin Dose 0.4 MG; Start 02/12/19 at 03:30 Ceftriaxone Sodium 50 ml @ 100 mls/hr Q24H IVPB Last administered on 02/17/19 14:38; Admin Dose 100 MLS/HR; Start 02/12/19 at 14:00 Acetaminophen/ Hydrocodone Bitart ([place] (7.5-325)) 1 tab Q4H PRN PO MODERATE PAIN LEVEL 4-6 Last administered on 02/17/19 16:49; Admin Dose 1 TAB; Start 02/13/19 at 13:00 Docusate Sodium (Colace) 100 mg BID PO Last administered on 02/17/19 08:50; Admin Dose 100 MG; Start 02/14/19 at 09:00 Polyethylene Glycol (Miralax) 17 gm DAILY PO Last administered on 02/17/19 08:50; Admin Dose 17 GM; Start 02/14/19 at 09:00 Ondansetron HCl (Zofran Inj) 4 mg Q4H PRN IV NAUSEA AND/OR VOMITING Last administered on 02/16/19 05:52; Admin Dose 4 MG; Start 02/15/19 at 15:00 Assessment/Plan Hospital Course (Demo Recall) This is a 49-year-old female who back in November 2018 and underwent surgery for ureteral stones at [facility]. She states she did have a JJ stent in the left ureter which was attached to a string that was brought out through her urethra she also had another JJ stent on the right side but that one was kept indwelling without the string attached to it since then the left u reteral stent was removed and she was told by the doctors at [facility] that she needs to keep her right ureteral JJ stent longer. She states that every time she goes over there and last time was on February 08 they keep telling her to wait another 2 weeks. Question is if there was any ureteral injury that required to have the JJ stent for a long time to allow the ureter to heal. The patient does not know of any problem like that. She has been to different hospital since including [facility] and [facility] and [facility]. The patient presented to this hospital now because of back pain. We did obtain the operative report from [facility]. She underwent right ureteroscopy and renoscopy and laser lithotripsy to a right ure teral stone. And had a JJ stent inserted. She did have distal right ureteral stricture that was dilated. I also did review the CT scan that she had at [facility]. There is no evidence of stone in the right ureter or kidney. But I am not sure whether the proximal curl of the stent is calcified or not. She is scheduled for cystoscopy and removal of right ureteral JJ stent and possible replacement of the stent if there is any problem to keep it at 1730 February 18, 2019. The procedure has been explained to the patient and she is agreeable to proceed BEST ARTIS MD Feb 17, 2019 18:38
[2019-02-17 20:04] VITALS: BP 115/57; PULSE 59; RESP 18
[2019-02-17] MEDS: CIPROFLOXACIN 400MG/D5W 200 ML IVPB SCH (21:28)
[2019-02-17] MEDS: TAMSULOSIN (SR) 0.4 MG CAP PO SCH (21:28)
[2019-02-18] VITALS (15 sets, daily range): BP systolic 100–127; BP diastolic 50–74; PULSE 54–68; RESP 14–20
[2019-02-18] MEDS: HYDROmorphONE 0.5 MG/0.5 ML SYG IV PRN ×5 (02:59→20:02)
[2019-02-18] MEDS: SOD CHLORIDE 0.9% 1,000 ML IV SCH ×3 (03:00→20:54)
[2019-02-18] MEDS ORDERED: SEVOFLURANE 15 MIN ONE (07:00)
[2019-02-18] MEDS ORDERED: DEXAMETHASONE 4 MG/ML 5 ML INJ ONE (07:00)
[2019-02-18] MEDS ORDERED: METOCLOPRAMIDE 10 MG INJ ONE (07:00)
[2019-02-18] MEDS: DOCUSATE SODIUM 100 MG CAP PO SCH ×2 (09:10→20:55)
[2019-02-18] MEDS: POLYETHYLENE GLYCOL 17 GM PACKET PO SCH (09:10)
[2019-02-18] MEDS: CIPROFLOXACIN 400MG/D5W 200 ML IVPB SCH ×2 (09:11→20:55)
--- NOTE | 2019-02-18 11:45 | PN ---
Date/Time of Note Date/Time of Note DATE: 02/18/19 TIME: 11:44 Assessment/Plan VTE Prophylaxis Risk score (from Ns)>0 risk: 3 SCD applied (from Ns): Yes SCD contraindicated: low risk/ambulating Pharmacological prophylaxis: NA/contraindicated Pharm contraindication: surgical contra Lines/Catheters IV Catheter Type (from [facility]): Peripheral IV Assessment/Plan Hospital Course Assessment and plan 1. Ac Pyelonephritis, stable Continue antibiotics. 2. H/o bilateral ureteral stents, [facility] records [Sep/ Oct; was last name Sae? Saw Dr Milan Maxwell?]. Rt stent removal pending. -Low perioperative risk. risk benefit ratio weighs in favor of proceeding forward to urology procedure should patient agree. 3. Chr nephrolithiasis apparently asymptomatic at this time 4. Anemia, continue iron replacement therapy 5. H/o RT ureteral stricture, sp dilatation @ [facility]. S: 02/15 min pain. Nausea vomiting fever or toxicity. No chest pain dyspnea 02/16: No distress. Occasional nausea. Dark urine? Poor appetite probably due to the foods that she is receiving not her medical condition 02/17 no events. Distress fever or chest pain 02/18: No fever chest pain dyspnea. to have stent removed later today O: Vital signs stable Physical exam No pallor Regular Clear Overweight; mild bilateral CVAT No edema Result Diagram: 02/18/19 0515 02/18/19 0515 Results 24hrs Laboratory Tests Test 02/18/19 05:15 White Blood Count 5.4 Red Blood Count 3.98 L Hemoglobin 9.7 L Hematocrit 31.3 L Mean Corpuscular Volume 78.6 L Mean Corpuscular Hemoglobin 24.4 L Mean Corpuscular Hemoglobin Concent 31.0 L Red Cell Distribution Width 15.9 H Platelet Count 251 Mean Platelet Volume 9.9 Immature Granulocytes % 0.400 Neutrophils % 54.9 Lymphocytes % 34.9 Monocytes % 7.2 Eosinophils % 2.0 Basophils % 0.6 Nucleated Red Blood Cells % 0.0 Immature Granulocytes # 0.020 Neutrophils # 3.0 Lymphocytes # 1.9 Monocytes # 0.4 Eosinophils # 0.1 Basophils # 0.0 Nucleated Red Blood Cells # 0.0 Sodium Level 141 Potassium Level 4.2 Chloride Level 110 Carbon Dioxide Level 26 Anion Gap 5 Blood Urea Nitrogen 9 Creatinine 0.54 Est Glomerular Filtrat Rate mL/min > 60 Glucose Level 108 Calcium Level 9.0 Total Bilirubin 0.2 Direct Bilirubin 0.00 Indirect Bilirubin 0.2 Aspartate Amino Transf (AST/SGOT) 27 Alanine Aminotransferase (ALT/SGPT) 29 Alkaline Phosphatase 67 Total Protein 6.3 Albumin 3.6 Globulin 2.70 Albumin/Globulin Ratio 1.33 Exam/Review of Systems Exam Vitals Vital Signs Date Temp Pulse Resp B/P (MAP) Pulse Ox O2 O2 Flow FiO2 Time Delivery Rate 02/18/19 98.2 65 16 123/68 98 Room Air 08:00 (86) Intake and Output 02/17/19 02/17/19 02/18/19 1515:00 23:00 07:00 IntakeIntake Total 300 ml 1440 ml BalanceBalance 300 ml 1440 ml Results Results 24hrs Laboratory Tests Test 02/18/19 05:15 White Blood Count 5.4 Red Blood Count 3.98 L Hemoglobin 9.7 L Hematocrit 31.3 L Mean Corpuscular Volume 78.6 L Mean Corpuscular Hemoglobin 24.4 L Mean Corpuscular Hemoglobin Concent 31.0 L Red Cell Distribution Width 15.9 H Platelet Count 251 Mean Platelet Volume 9.9 Immature Granulocytes % 0.400 Neutrophils % 54.9 Lymphocytes % 34.9 Monocytes % 7.2 Eosinophils % 2.0 Basophils % 0.6 Nucleated Red Blood Cells % 0.0 Immature Granulocytes # 0.020 Neutrophils # 3.0 Lymphocytes # 1.9 Monocytes # 0.4 Eosinophils # 0.1 Basophils # 0.0 Nucleated Red Blood Cells # 0.0 Sodium Level 141 Potassium Level 4.2 Chloride Level 110 Carbon Dioxide Level 26 Anion Gap 5 Blood Urea Nitrogen 9 Creatinine 0.54 Est Glomerular Filtrat Rate mL/min > 60 Glucose Level 108 Calcium Level 9.0 Total Bilirubin 0.2 Direct Bilirubin 0.00 Indirect Bilirubin 0.2 Aspartate Amino Transf (AST/SGOT) 27 Alanine Aminotransferase (ALT/SGPT) 29 Alkaline Phosphatase 67 Total Protein 6.3 Albumin 3.6 Globulin 2.70 Albumin/Globulin Ratio 1.33 Medications Medication Current Medications Sodium Chloride 1,000 ml @ 100 mls/hr Q10H IV Last administered on 02/18/19at 03:00; Admin Dose 100 MLS/HR; Start 02/11/19 at 20:35 IV Flush (NS 3 ml) 3 ml PER PROTOCOL IV ; Start 02/11/19 at 21:00 Acetaminophen (Tylenol Tab) 650 mg Q6H PRN PO .PAIN 1-3 OR TEMP; Start 02/11/19 at 21:00 Hydromorphone HCl (Dilaudid) 0.5 mg Q4H PRN IV .SEVERE PAIN 7-10 Last administered on 02/18/19 11:26; Admin Dose 0.5 MG; Start 02/11/19 at 21:00 Docusate Sodium (Colace) 100 mg Q12H PRN PO .CONSTIPATION Last administered on 02/15/19 09:03; Admin Dose 100 MG; Start 02/11/19 at 21:00 Bisacodyl (Dulcolax) 5 mg DAILY PRN PO .CONSTIPATION Last administered on 02/15/19 09:03; Admin Dose 5 MG; Start 02/11/19 at 21:00 Tamsulosin HCl (Flomax) 0.4 mg HS PO Last administered on 02/17/19 21:28; Admin Dose 0.4 MG; Start 02/12/19 at 03:30 Acetaminophen/ Hydrocodone Bitart ([place] (7.5-325)) 1 tab Q4H PRN PO MODERATE PAIN LEVEL 4-6 Last administered on 02/17/19 16:49; Admin Dose 1 TAB; Start 02/13/19 at 13:00 Docusate Sodium (Colace) 100 mg BID PO Last administered on 02/18/19 09:10; Admin Dose 100 MG; Start 02/14/19 at 09:00 Polyethylene Glycol (Miralax) 17 gm DAILY PO Last administered on 02/18/19 09:10; Admin Dose 17 GM; Start 02/14/19 at 09:00 Ondansetron HCl (Zofran Inj) 4 mg Q4H PRN IV NAUSEA AND/OR VOMITING Last administered on 02/16/19 05:52; Admin Dose 4 MG; Start 02/15/19 at 15:00 Ciprofloxacin/ Dextrose 200 ml @ 200 mls/hr Q12 IVPB Last administered on 02/18/19 09:11; Admin Dose 200 MLS/HR; Start 02/17/19 at 21:00 CHASTITY GAN MD Feb 18, 2019 11:45
--- NOTE | 2019-02-18 17:00 | RADRPT ---
Vent Rate: 63 bpm RR Interval: 0 msec [place] Interval: 142 msec QRS Duration: 92 msec QT Interval: 406 msec QTC Interval: 415 msec P-R-T [place]: 9 - -11 - 26 degrees Normal sinus rhythm Normal ECG Electronically Signed By: Baldev Bradford
[2019-02-18] MEDS ORDERED: MIDAZOLAM 1 MG/ML 2 ML INJ ONE (17:04)
[2019-02-18] MEDS ORDERED: FENTAnyl 50 MCG/ML VIAL ONE (17:04)
--- NOTE | 2019-02-18 17:38 | HPN ---
Date/Time of Note Date/Time of Note DATE: 02/18/19 TIME: 17:38 Interval H&P Admission Note Pt. seen H&P reviewed: No system changes BEST ARTIS MD Feb 18, 2019 17:38
--- NOTE | 2019-02-18 17:43 | PREAC ---
Date/Time of Note Date/Time of Note DATE: 02/18/19 TIME: 17:42 Anesthesia Eval and Record Evaluation Time Pre-Procedure Interview DATE: 02/18/19 TIME: 17:42 Age 49 Sex female NPO: 8 hrs Preoperative diagnosis R renal obstruction Planned procedure cystoscopy w/ R lithotrypsy Past Medical History Past Medical History: Includes Renal: Other (renal stones) GI: Obesity Surgery & Anesthesia Issues No known issue Meds Anticoagulation: No Beta Bear within 24 hr: No Reason Beta Bear not given: Pt. not on B-Bear Active Scripts Ondansetron Hcl* (Zofran*) 4 Mg Tablet, 4 MG PO Q6H for NAUSEA AND/OR VOMITING, #30 TAB Prov:VERA GRESHAM 01/26/19 Tramadol HCl (Tramadol HCl) 50 Mg Tablet, 50 MG PO Q4 PRN for PAIN, #20 TAB Prov:VERA GRESHAM 01/26/19 Reported Medications Ibuprofen* (Ibuprofen*) 800 Mg Tab, 800 MG PO Q6H PRN for PAIN, TAB 01/25/19 Discontinued Scripts Ciprofloxacin Hcl* (Ciprofloxacin Hcl*) 500 Mg Tablet, 500 MG PO BID for 3 Days, TAB Prov:VERA GRESHAM 01/26/19 Current Medications Sodium Chloride 1,000 ml @ 100 mls/hr Q10H IV Last administered on 02/18/19at 15:14; Admin Dose 100 MLS/HR; Start 02/11/19 at 20:35 IV Flush (NS 3 ml) 3 ml PER PROTOCOL IV ; Start 02/11/19 at 21:00 Acetaminophen (Tylenol Tab) 650 mg Q6H PRN PO .PAIN 1-3 OR TEMP; Start 02/11/19 at 21:00 Hydromorphone HCl (Dilaudid) 0.5 mg Q4H PRN IV .SEVERE PAIN 7-10 Last administered on 02/18/19at 15:16; Admin Dose 0.5 MG; Start 02/11/19 at 21:00 Docusate Sodium (Colace) 100 mg Q12H PRN PO .CONSTIPATION Last administered on 02/15/19at 09:03; Admin Dose 100 MG; Start 02/11/19 at 21:00 Bisacodyl (Dulcolax) 5 mg DAILY PRN PO .CONSTIPATION Last administered on 02/15/19 09:03; Admin Dose 5 MG; Start 02/11/19 at 21:00 Tamsulosin HCl (Flomax) 0.4 mg HS PO Last administered on 02/17/19 21:28; Admin Dose 0.4 MG; Start 02/12/19 at 03:30 Acetaminophen/ Hydrocodone Bitart ([place] (7.5-325)) 1 tab Q4H PRN PO MODERATE PAIN LEVEL 4-6 Last administered on 02/17/19 16:49; Admin Dose 1 TAB; Start 02/13/19 at 13:00 Docusate Sodium (Colace) 100 mg BID PO Last administered on 02/18/19 09:10; Admin Dose 100 MG; Start 02/14/19 at 09:00 Polyethylene Glycol (Miralax) 17 gm DAILY PO Last administered on 02/18/19 09:10; Admin Dose 17 GM; Start 02/14/19 at 09:00 Ondansetron HCl (Zofran Inj) 4 mg Q4H PRN IV NAUSEA AND/OR VOMITING Last administered on 02/16/19 05:52; Admin Dose 4 MG; Start 02/15/19 at 15:00 Ciprofloxacin/ Dextrose 200 ml @ 200 mls/hr Q12 IVPB Last administered on 02/18/19 09:11; Admin Dose 200 MLS/HR; Start 02/17/19 at 21:00 Meds reviewed: Yes Allergies Coded Allergies: No Known Drug Allergies (Verified Allergy, Unknown, 01/25/19) Allergies Reviewed: Yes Labs/Studies Labs Reviewed: Reviewed by anesthesiologist Result Diagram: 02/18/1915 02/18/1915 Laboratory Tests 02/18/19 05:15 test: Negative Studies: ECG, CXR Pre-procedure Exam Last vitals Vital Signs Date Temp Pulse Resp B/P (MAP) Pulse Ox O2 O2 Flow FiO2 Time Delivery Rate 02/18/19 97.2 62 16 120/56 99 Room Air 14:00 (77) Airway: Adequate mouth opening, Adequate thyromental dist Mallampati: Mallampati III Teeth: Normal Lung: Normal Heart: Normal ASA Physical Status ASA physical status: 2 Emergency: None Planned Anesthetic General/MAC: LMA Planned Pain Management Parenteral pain med Pre-operative Attestations Prior to commencing anesthesia and surgery, the patient was re-evaluated, there was verification of: *The patient's identity *The results of appropriate recent lab work and preoperative vital signs *The above evaluation not changing prior to induction *Anesthetic plan, risk benefits, alternative and complications discussed with patient/family; questions answered; patient/family understands, accepts and wishes to proceed. PRICILA ORTIZ MD Feb 18, 2019 17:43
[2019-02-18] MEDS ORDERED: PROPOFOL 20 ML ONE (17:50)
[2019-02-18] MEDS ORDERED: ONDANSETRON 4 MG INJ ONE (17:53)
[2019-02-18] MEDS ORDERED: LIDOCAINE 2% (SDV) 5 ML INJ ONE (17:59)
[2019-02-18] MEDS ORDERED: CEFAZOLIN 1 GM INJ ONE (17:59)
[2019-02-18] MEDS ORDERED: DIPHENHYDRAMINE 50 MG INJ IV PRN (18:00)
[2019-02-18] MEDS ORDERED: FENTAnyl 50 MCG/ML VIAL IV PRN ×2 (18:00)
[2019-02-18] MEDS ORDERED: HYDROmorphONE 1 MG/5 ML IV SYRINGE IV PRN ×2 (18:00)
[2019-02-18] MEDS ORDERED: MEPERIDINE 25 MG INJ IV PRN (18:00)
[2019-02-18] MEDS ORDERED: ONDANSETRON 4 MG INJ IV PRN (18:00)
[2019-02-18] MEDS ORDERED: KETOROLAC 30 MG INJ IV PRN (18:00)
[2019-02-18] MEDS ORDERED: LEVALBUTEROL (NEB) 1.25 MG/0.5 ML AMP HHN PRN (18:00)
[2019-02-18] MEDS ORDERED: IOHEXOL 300MG/ML 30 ML BTL ONE (18:09)
--- NOTE | 2019-02-18 18:43 | OPR ---
Date/Time of Note Date/Time of Note DATE: 02/18/19 TIME: 18:38 Operative Report Procedure Date: Feb 18, 2019 Preoperative Diagnosis Retained right ureteral JJ stent Postoperative Diagnosis Same Operation/Procedure Performed Cystoscopy and removal of right ureteral JJ stent and right retrograde pyelogram Surgeon see signature line [employer]able [employer] Engineer Gavin De Paz Anesthesia Type: general Anesthesiologist: PRICILA ORTIZ MD Estimated Blood Loss: none Transfusion none Specimen Urine for culture and sensitivity from the bladder Grafts/Implants none Complications none Pt Condition Post Procedure: stable Disposition: PACU Indications Retained right ureteral JJ stent, patient is post right ureteroscopy laser lithotripsy in November 2018 Procedure Description Patient was brought to the operating room. Timeout was done and the patient was identified by her name, birthdate, the procedure and the side of the procedure. Patient was given general anesthesia and then positioned in the lithotomy position. The genital area was then prepped and draped in the usual sterile manner. The patient was given 2 g of Ancef IV at the start of the procedure. #21 [place] cystoscope sheath was introduced into the bladder. Urine was collected for culture and sensitivity. Fluoroscopy was done and the stent in the right ureter was visualized over the bladder, the ureter and the right kidney. Then I did grasp the distal end of the stent with a grasper and while under fluoroscopy I pulled it out to make sure that the proximal end uncurl. The stent was removed intact. Then I used a 10 [place] cone-tip ureteral catheter and did a retrograde pyelogram and the ureter and the right collecting system were visualized and there was no obstruction in the ureter. Therefore there was no need to insert a new JJ stent. The bladder was then emptied and the patient was transferred to the recovery room in a stable and satisfactory condition BEST ARTIS MD Feb 18, 2019 18:43
--- NOTE | 2019-02-18 20:36 | PAC ---
Date/Time of Note Date/Time of Note DATE: 02/18/19 TIME: 20:36 Post-Anesthesia Notes Post-Anesthesia Note Last documented vital signs Vital Signs Date Temp Pulse Resp B/P (MAP) Pulse Ox O2 O2 Flow FiO2 Time Delivery Rate 02/18/19 97.8 59 17 121/57 98 19:45 (78) 02/18/19 Room Air 19:20 Activity: WNL Respiratory function: WNL Cardiovascular function: WNL Mental status: Baseline Pain reasonably controlled: Yes Hydration appropriate: Yes Nausea/Vomiting absent: Yes PRICILA ORTIZ MD Feb 18, 2019 20:36
[2019-02-18] MEDS: TAMSULOSIN (SR) 0.4 MG CAP PO SCH (20:55)
[2019-02-19] MEDS: HYDROmorphONE 0.5 MG/0.5 ML SYG IV PRN ×3 (00:24→14:32)
[2019-02-19 02:10] VITALS: BP 95/52; PULSE 70; RESP 20
[2019-02-19 05:00] VITALS: BP 118/63; PULSE 67; RESP 18
[2019-02-19 08:18] VITALS: BP 118/62; PULSE 66; RESP 22
--- NOTE | 2019-02-19 08:21 | CONS ---
Consult Date/Type/Reason Admit Date/Time Feb 11, 2019 at 21:00 Initial Consult Date 02/12/19 Type of Consultation: Urology Reason for Consultation Ureteral JJ stent Requesting Provider: BIB RUGGIERO MD Date/Time of Note DATE: 02/19/19 TIME: 08:19 Subjective Patient is comfortable and has very minimal pain. Objective Vitals Vital Signs Date Temp Pulse Resp B/P (MAP) Pulse Ox O2 O2 Flow FiO2 Time Delivery Rate 02/19/19 67 18 118/63 05:00 (81) 02/19/19 98.4 98 02:10 02/18/19 Room Air 19:20 Intake and Output 02/18/19 02/18/19 02/19/19 1515:00 23:00 07:00 IntakeIntake Total 400 ml 2900 ml 800 ml OutputOutput Total 1 ml 900 ml 800 ml BalanceBalance 399 ml 2000 ml 0 ml Exam Abdomen is soft and there is no flank tenderness. Results/Medications Result Diagram: 02/19/19 0544 02/19/19 0544 Results 24 hrs Laboratory Tests Test 02/19/19 05:44 White Blood Count 6.0 Red Blood Count 4.08 L Hemoglobin 9.6 L Hematocrit 31.8 L Mean Corpuscular Volume 77.9 L Mean Corpuscular Hemoglobin 23.5 L Mean Corpuscular Hemoglobin Concent 30.2 L Red Cell Distribution Width 16.2 H Platelet Count 241 Mean Platelet Volume 10.5 H Immature Granulocytes % 0.500 H Neutrophils % 69.8 Lymphocytes % 24.2 Monocytes % 5.0 Eosinophils % 0.2 Basophils % 0.3 Nucleated Red Blood Cells % 0.0 Immature Granulocytes # 0.030 Neutrophils # 4.2 Lymphocytes # 1.5 Monocytes # 0.3 Eosinophils # 0.0 Basophils # 0.0 Nucleated Red Blood Cells # 0.0 Sodium Level 140 Potassium Level 4.5 Chloride Level 109 Carbon Dioxide Level 24 Anion Gap 7 Blood Urea Nitrogen 10 Creatinine 0.62 Est Glomerular Filtrat Rate mL/min > 60 Glucose Level 99 Calcium Level 9.4 Total Bilirubin 0.2 Direct Bilirubin 0.00 Indirect Bilirubin 0.2 Aspartate Amino Transf (AST/SGOT) 28 Alanine Aminotransferase (ALT/SGPT) 42 Alkaline Phosphatase 70 Total Protein 6.3 Albumin 3.6 Globulin 2.70 Albumin/Globulin Ratio 1.33 Home Meds Active Scripts Ondansetron Hcl* (Zofran*) 4 Mg Tablet, 4 MG PO Q6H for NAUSEA AND/OR VOMITING, #30 TAB Prov:VERA GRESHAM. 01/26/19 Tramadol HCl (Tramadol HCl) 50 Mg Tablet, 50 MG PO Q4 PRN for PAIN, #20 TAB Prov:VERA GRESHAM S. 01/26/19 Reported Medications Ibuprofen* (Ibuprofen*) 800 Mg Tab, 800 MG PO Q6H PRN for PAIN, TAB 01/25/19 Medications Current Medications Sodium Chloride 1,000 ml @ 100 mls/hr Q10H IV Last administered on 02/18/19 20:54; Admin Dose 100 MLS/HR; Start 02/11/19 at 20:35 IV Flush (NS 3 ml) 3 ml PER PROTOCOL IV ; Start 02/11/19 at 21:00 Acetaminophen (Tylenol Tab) 650 mg Q6H PRN PO .PAIN 1-3 OR TEMP; Start 02/11/19 at 21:00 Hydromorphone HCl (Dilaudid) 0.5 mg Q4H PRN IV .SEVERE PAIN 7-10 Last administered on 02/19/19 00:24; Admin Dose 0.5 MG; Start 02/11/19 at 21:00 Docusate Sodium (Colace) 100 mg Q12H PRN PO .CONSTIPATION Last administered on 02/15/19 09:03; Admin Dose 100 MG; Start 02/11/19 at 21:00 Bisacodyl (Dulcolax) 5 mg DAILY PRN PO .CONSTIPATION Last administered on 02/15/19 09:03; Admin Dose 5 MG; Start 02/11/19 at 21:00 Tamsulosin HCl (Flomax) 0.4 mg HS PO Last administered on 02/18/19 20:55; Admin Dose 0.4 MG; Start 02/12/19 at 03:30 Acetaminophen/ Hydrocodone Bitart ([place] (7.5-325)) 1 tab Q4H PRN PO MODERATE PAIN LEVEL 4-6 Last administered on 02/17/19 16:49; Admin Dose 1 TAB; Start 02/13/19 at 13:00 Docusate Sodium (Colace) 100 mg BID PO Last administered on 02/18/19 20:55; Admin Dose 100 MG; Start 02/14/19 at 09:00 Polyethylene Glycol (Miralax) 17 gm DAILY PO Last administered on 02/18/19at 09:10; Admin Dose 17 GM; Start 02/14/19 at 09:00 Ondansetron HCl (Zofran Inj) 4 mg Q4H PRN IV NAUSEA AND/OR VOMITING Last administered on 02/16/19at 05:52; Admin Dose 4 MG; Start 02/15/19 at 15:00 Ciprofloxacin/ Dextrose 200 ml @ 200 mls/hr Q12 IVPB Last administered on 02/18/19at 20:55; Admin Dose 200 MLS/HR; Start 02/17/19 at 21:00 Assessment/Plan Hospital Course (Demo Recall) 49-year-old female who had a right ureteral JJ stent inserted back in November 2018 underwent cystoscopy and removal of the JJ stent and retrograde pyelogram on 02/18/2019. She is doing well and has minimal if any pain. She may be discharged home today. BEST ARTIS MD Feb 19, 2019 08:21
[2019-02-19] MEDS: CIPROFLOXACIN 400MG/D5W 200 ML IVPB SCH (08:28)
[2019-02-19] MEDS: POLYETHYLENE GLYCOL 17 GM PACKET PO SCH (08:28)
[2019-02-19] MEDS: DOCUSATE SODIUM 100 MG CAP PO SCH (08:28)
[2019-02-19] MEDS: SOD CHLORIDE 0.9% 1,000 ML IV SCH (08:29)
[2019-02-19] MEDS: HYDROCODONE/APAP (7.5/325) TAB PO PRN (08:29)
--- NOTE | 2019-02-19 11:00 | PDOCDIS ---
Discharge Instructions CONDITION [id number] Patient Condition: [id number] Good HOME CARE INSTRUCTIONS: [id number] Diet Instructions: [id number] Regular ACTIVITY: [id number] Activity Restrictions: [id number] Slowly Increase Activity Avoid heavy lifting FOLLOW UP/APPOINTMENTS Follow-up Plan appt PCP & Dr Luis 1-2wks CHASTITY GAN MD Feb 19, 2019 11:00
[2019-02-19] MEDS ORDERED: TAMS-14 PO (11:02)
[2019-02-19] MEDS ORDERED: DOCU-144 PO (11:02)
[2019-02-19] MEDS ORDERED: ACET325T33 PO (11:02)
[2019-02-19] MEDS ORDERED: CIPR500T4 PO (11:02)
--- NOTE | 2019-02-19 12:44 | DS ---
Date/Time of Note Date/Time of Note DATE: 02/19/19 TIME: 12:41 Discharge Summary Admission/Discharge Info Admit Date/Time Feb 11, 2019 at 21:00 Discharge Date/Time Patient Condition: Stable Consults Dr Luis Procedures CXR no acute process KUB no stones Pyelogram Intraoperative imaging of the abdomen and pelvis with fluoroscopy. CLINICAL INDICATION: Abdominal pain. Intraoperative. TECHNIQUE: Four images of the abdomen and pelvis were obtained in the operating room with an image intensifier. No radiologist was in attendance. Fluoroscopy time is 42 seconds. COMPARISON: Abdomen radiograph dated 02/12/2019. FINDINGS: Images demonstrate removal of the right ureteral stent. An IUD is present in the pelvis. Contrast was injected into the right ureter. There is moderate right hydronephrosis. IMPRESSION: 1. Satisfactory intraoperative imaging of the abdomen and pelvis. Preoperative Diagnosis Retained right ureteral JJ stent Postoperative Diagnosis Same Operation/Procedure Performed Cystoscopy and removal of right ureteral JJ stent and right retrograde pyelogram Hx of Present Illness Evaluated for pyelonephritis Hospital Course Hospitalist coverage/hospital course 1. Ac Pyelonephritis, stable finish antibiotics only less than 20,000 enterococcal bugs 2. H/o bilateral ureteral stents, [facility] records [Oct; was last name Sae? Saw Dr Milan Maxwell?]. sp Rt stent removal 02/18. 3. Chr nephrolithiasis apparently asymptomatic at this time 4. Anemia, continue iron replacement therapy 5. H/o RT ureteral stricture, sp dilatation @ [facility]. S: 4/8 min pain. Nausea vomiting fever or toxicity. No chest pain dyspnea 02/16: No distress. Occasional nausea. Dark urine? Poor appetite probably due to the foods that she is receiving not her medical condition 02/17 no events. Distress fever or chest pain 02/18: No fever chest pain dyspnea. to have stent removed later mild costovertebral angle tenderness. No dysuria hematuria. Stable and fit for discharge O: Vital signs stable Physical exam No pallor Regular Clear Overweight; mild bilateral CVAT No edema Home Meds Active Scripts Docusate Sodium* (Colace*) 100 Mg Capsule, 100 MG PO Q12H PRN for .CONSTIPATION for 1 Day, #1 CAP Prov:CHASTITY GAN MD 02/19/19 Acetaminophen* (Tylenol*) 325 Mg Tablet, 650 MG PO Q6H PRN for .PAIN 1-3 OR TEMP for 10 Days, TAB Prov:CHASTITY GAN MD 02/19/19 Tamsulosin Hcl* (Flomax*) 0.4 Mg Cap.er.24h, 0.4 MG PO HS for 14 Days, #14 CAP Prov:CHASTITY GAN MD 02/19/19 Ciprofloxacin Hcl* (Ciprofloxacin Hcl*) 500 Mg Tablet, 500 MG PO BID@06,18 for 5 Days, #10 TAB Prov:CHASTITY GAN MD 02/19/19 Ondansetron Hcl* (Zofran*) 4 Mg Tablet, 4 MG PO Q6H for NAUSEA AND/OR VOMITING, #30 TAB Prov:VERA GRESHAM 01/26/19 Discontinued Reported Medications Ibuprofen* (Ibuprofen*) 800 Mg Tab, 800 MG PO Q6H PRN for PAIN, TAB 01/25/19 Discontinued Scripts Tramadol HCl (Tramadol HCl) 50 Mg Tablet, 50 MG PO Q4 PRN for PAIN, #20 TAB Prov:VERA GRESHAM 01/26/19 Follow-up Plan appt PCP & Dr Luis 1-2wks Primary Care Provider [facility] Time spent on discharge: < 30 minutes Pending Labs Laboratory Tests Test 02/19/19 05:44 White Blood Count 6.0 10^3/ul (4.8-10.8) Red Blood Count 4.08 10^6/ul (4.20-5.40) Hemoglobin 9.6 g/dl (12.0-16.0) Hematocrit 31.8 % (37.0-47.0) Mean Corpuscular Volume 77.9 fl (82.0-101.0) Mean Corpuscular Hemoglobin 23.5 pg (29.0-33.0) Mean Corpuscular Hemoglobin Concent 30.2 g/dl (32.0-37.0) Red Cell Distribution Width 16.2 % (11.5-14.5) Platelet Count 241 10^3/UL (140-415) Mean Platelet Volume 10.5 fl (7.4-10.4) Immature Granulocytes % 0.500 % (0.001-0.429) Neutrophils % 69.8 % (39.0-77.0) Lymphocytes % 24.2 % (15.0-51.0) Monocytes % 5.0 % (0.0-11.0) Eosinophils % 0.2 % (0.0-7.0) Basophils % 0.3 % (0.0-2.0) Nucleated Red Blood Cells % 0.0 /100WBC (0.0-0.0) Immature Granulocytes # 0.030 10^3/ul (0.0-0.031) Neutrophils # 4.2 10^3/ul (1.6-7.5) Lymphocytes # 1.5 10^3/ul (0.8-2.9) Monocytes # 0.3 10^3/ul (0.3-0.9) Eosinophils # 0.0 10^3/ul (0.0-0.5) Basophils # 0.0 10^3/ul (0.0-0.1) Nucleated Red Blood Cells # 0.0 10^3/ul (0.0-0.0) Sodium Level 140 mmol/L (135-144) Potassium Level 4.5 mmol/L (3.5-5.1) Chloride Level 109 mmol/L (97-110) Carbon Dioxide Level 24 mmol/L (21-31) Anion Gap 7 (5-13) Blood Urea Nitrogen 10 mg/dl (7-20) Creatinine 0.62 mg/dl (0.44-1.00) Est Glomerular Filtrat Rate mL/min > 60 mL/min (>60) Glucose Level 99 mg/dl (70-220) Calcium Level 9.4 mg/dl (8.4-10.2) Total Bilirubin 0.2 mg/dl (0.2-1.3) Direct Bilirubin 0.00 mg/dl (0.00-0.20) Indirect Bilirubin 0.2 mg/dl (0-1.1) Aspartate Amino Transf (AST/SGOT) 28 IU/L (15-46) Alanine Aminotransferase (ALT/SGPT) 42 IU/L (13-69) Alkaline Phosphatase 70 IU/L (42-121) Total Protein 6.3 g/dl (6.1-8.1) Albumin 3.6 g/dl (3.3-4.9) Globulin 2.70 g/dl (1.3-3.2) Albumin/Globulin Ratio 1.33 Microbiology Date/Time Source Procedure Growth Status 02/18/19 17:10 Cystobladder Urine Culture - Preliminary NO GROWTH Resulted AFTER 24 HOURS CHASTITY GAN MD Feb 19, 2019 12:44
[2019-02-19 13:51] VITALS: BP 123/65; PULSE 64; RESP 18
[2019-02-19] MEDS ORDERED: CIPROFLOXACIN 500 MG TAB PO SCH (18:00)
== END 2019-02-19 19:10 | disposition home or self-care (01) | DRG 699 ==
LOC: PP2 20:14 → INTOOBSV 20:14 → OBSVTOIN 21:00
PROVIDERS: ADMIT Internal Medicine; ATTEND Internal Medicine
PROC: 0TP98DZ Removal of Intraluminal Device from Ureter, Via Natural or Artificial Opening Endoscopic (ICD-10-PCS; principal; 2019-02-18 17:30)
DX: T83.592A Infection and inflammatory reaction due to indwelling ureteral stent, initial encounter (principal); N10 Acute pyelonephritis; E66.9 Obesity, unspecified; Z68.33 Body mass index [BMI] 33.0-33.9, adult; R31.9 Hematuria, unspecified; D50.9 Iron deficiency anemia, unspecified; Z97.5 Presence of (intrauterine) contraceptive device; B95.2 Enterococcus as the cause of diseases classified elsewhere
CPT/HCPCS: 71045; 74018; 74420; 80053; 80061; 82306; 82728; 83036; 83540; 83735; 84100; 84443; 84703; 85025; 85610; 87081; 87086; 93005; 99217; G0378; J0690; J0696; J0744; J1100; J1170; J1885; J2250; J2405; J2765; J2916; J3010; J7030; Q9967

== ENCOUNTER 2019-05-12 05:46 | Emergency (ER) | payer OTHER ==
[~2019-05-12] VITALS: Ht 160 cm; Wt 80.1 kg
[~2019-05-12 05:46] MED LIST changes: +ACET325T33 PO; +DOCU-144 PO; -IBUP-1545 PO; +TAMS-14 PO; -TRAM50TA2 PO
[2019-05-12 05:52] VITALS: Ht 160 cm; Wt 80.1 kg
[2019-05-12] MEDS ORDERED: ONDANSETRON 4 MG INJ IV STA (06:09)
[2019-05-12] MEDS ORDERED: KETOROLAC 30 MG INJ IV STA (06:09)
[2019-05-12] MEDS ORDERED: morphine 4 MG/ML VIAL IV STA (06:09)
--- NOTE | 2019-05-12 06:17 | EN ---
Date/Time of Note Date/Time of Note DATE: 05/12/19 TIME: 06:12 ER Progress Note This is a 49-year-old who presents emergency department with complaints of right-sided lower back pain that started last night. Stated that this pain woke her up. Stated that the pain is very similar when she had a kidney stones. Stated that she vomited multiple times with nonbilious nonbloody emesis. Stated that she has history of kidney stones. LMP: Unknown. G6, . Denies headache, head injury, loss of consciousness, dizziness, neck pain, neck stiffness, throat pain, difficulty swallowing, difficulty breathing lying flat, shoulder pain, chest pain, abdominal pain, nausea, vomiting, constipation, diarrhea, or possibility being , loss of bowel and bladder control, trauma, injury, falls, difficulty walking due to pain, numbness or tingling sensation, calf pain, recent travel, recent major surgery in the last 3 weeks, calf pain, recent long travel, recent exposure to any illness, recent antibiotic use in the last 3 months, fever, chills, seizures. Past medical history: Kidney stones. Social: Denies smoking, use of alcoholic beverages, use of illegal drugs. Rapid medical exam: Patient has no respiratory distress. Lung sounds are clear to auscultation. Has right-sided CVA tenderness. No saddle anesthesia. No neurovascular deficits. No neurological deficits. Rapid medical screening was done. Patient has no life-threatening emergency or condition at this time. Initial treatment/diagnostic tests/imaging/blood works was ordered. Patient will be seen by another provider/MD/PA/DIE MAKER. PATRICIA TIM May 12, 2019 06:17
--- NOTE | 2019-05-12 06:22 | ERD ---
ER Documentation Chief Complaint Chief Complaint R low back radiating down leg, hx of sciatica HPI 49-year-old female with history of kidney stones presents with complaint of right flank pain since last night. Patient states the pain is 10 out of 10. Patient also admits to some dysuria. Patient states that this pain is identical to the pain she is previous experience with her kidney stones in the past. Admits to several episodes of vomiting. Vomitus described as nonbilious and nonbloody. Patient denies fevers, chills, hematuria, chest pain, abdominal pain, diarrhea. ROS All systems reviewed and are negative except as per history of present illness. Medications Home Meds Active Scripts Cephalexin* (Keflex*) 500 Mg Capsule, 500 MG PO BID for 14 Days, CAP Prov:VERA TERRAZAS 05/12/19 Hydrocodone/Acetaminophen ([place] 5-325 Tablet) 1 Each Tablet, 1 TAB PO Q6H PRN for PAIN, #15 TAB Prov:VERA TERRAZAS 05/12/19 Docusate Sodium* (Colace*) 100 Mg Capsule, 100 MG PO Q12H PRN for .CONSTIPATION for 1 Day, #1 CAP Prov:CHASTITY GAN MD 02/19/19 Acetaminophen* (Tylenol*) 325 Mg Tablet, 650 MG PO Q6H PRN for .PAIN 1-3 OR TEMP for 10 Days, TAB Prov:CHASTITY GAN MD 02/19/19 Tamsulosin Hcl* (Flomax*) 0.4 Mg Cap.er.24h, 0.4 MG PO HS for 14 Days, #14 CAP Prov:CHASTITY GAN MD 02/19/19 Ciprofloxacin Hcl* (Ciprofloxacin Hcl*) 500 Mg Tablet, 500 MG PO BID@06,18 for 5 Days, #10 TAB Prov:CHASTITY GAN MD 02/19/19 Ondansetron Hcl* (Zofran*) 4 Mg Tablet, 4 MG PO Q6H for NAUSEA AND/OR VOMITING, #30 TAB Prov:VERA GRESHAM 01/26/19 Allergies Allergies: Coded Allergies: No Known Drug Allergies (Verified Allergy, Unknown, 01/25/19) PMhx/Soc History of Surgery: Yes (C section X5,kidney stone removal in february) Anesthesia Reaction: No Hx Neurological Disorder: No Hx Respiratory Disorders: No Hx Cardiac Disorders: No Hx Psychiatric Problems: No Hx Miscellaneous Medical Probl: No Hx Alcohol Use: No Hx Substance Use: No Hx Tobacco Use: No FmHx Family History: No diabetes, No coronary disease, No other Physical Exam Vitals Vital Signs Date Temp Pulse Resp B/P (MAP) Pulse Ox O2 O2 Flow FiO2 Time Delivery Rate 05/12/19 97.5 65 18 131/86 99 Room Air 08:59 (101) 05/12/19 98.7 81 24 164/89 100 05:52 (114) Physical Exam Const: No acute distress Head: Atraumatic Eyes: Normal Conjunctiva ENT: Normal External Ears, Nose and Mouth. Neck: Full range of motion. No meningismus. Resp: Clear to auscultation bilaterally Cardio: Regular rate and rhythm, no murmurs Abd: Upper right quadrant pain. Negative McBurney's. Skin: No petechiae or rashes Back: right-sided CVA tenderness. Ext: No cyanosis, or edema Neur: Awake and alert Psych: Normal Mood and Affect Result Diagram: 05/12/1961905/12/19619 Results 24 hrs Laboratory Tests Test 05/12/19 06:20 05/12/19 06:33 05/12/19 06:42 White Blood Count 6.6 10^3/ul Red Blood Count 5.40 10^6/ul Hemoglobin 13.8 g/dl Hematocrit 42.8 % Mean Corpuscular Volume 79.3 fl Mean Corpuscular Hemoglobin 25.6 pg Mean Corpuscular 32.2 g/dl Hemoglobin Concent Red Cell Distribution Width 16.2 % Platelet Count 273 10^3/UL Mean Platelet Volume 10.1 fl Immature Granulocytes % 0.500 % Neutrophils % 54.2 % Lymphocytes % 36.6 % Monocytes % 6.6 % Eosinophils % 1.5 % Basophils % 0.6 % Nucleated Red Blood Cells % 0.0 /100WBC Immature Granulocytes # 0.030 10^3/ul Neutrophils # 3.6 10^3/ul Lymphocytes # 2.4 10^3/ul Monocytes # 0.4 10^3/ul Eosinophils # 0.1 10^3/ul Basophils # 0.0 10^3/ul Nucleated Red Blood Cells # 0.0 10^3/ul Sodium Level 144 mmol/L Potassium Level 4.2 mmol/L Chloride Level 113 mmol/L Carbon Dioxide Level 21 mmol/L Anion Gap 10 Blood Urea Nitrogen 13 mg/dl Creatinine 0.75 mg/dl Est Glomerular Filtrat > 60 mL/min Rate mL/min Glucose Level 113 mg/dl Calcium Level 9.7 mg/dl Total Bilirubin 0.3 mg/dl Direct Bilirubin 0.00 mg/dl Indirect Bilirubin 0.3 mg/dl Aspartate Amino Transf (AST/SGOT) 21 IU/L Alanine 22 IU/L Aminotransferase (ALT/SGPT) Alkaline Phosphatase 72 IU/L Total Protein 8.1 g/dl Albumin 4.6 g/dl Globulin 3.50 g/dl Albumin/Globulin Ratio 1.31 Amylase Level 95 U/L Lipase 280 U/L POC Beta HCG, Qualitative NEGATIVE Urine Color YELLOW Urine Clarity CLOUDY Urine pH 6.0 Urine Specific [place] 1.009 Urine Ketones NEGATIVE mg/dL Urine Nitrite NEGATIVE mg/dL Urine Bilirubin NEGATIVE mg/dL Urine Urobilinogen NEGATIVE mg/dL Urine Leukocyte Esterase 3+ Tyra/ul Urine Microscopic RBC 5 /HPF Urine Microscopic WBC 81 /HPF Urine Squamous Epithelial Cells MODERATE /HPF Urine Bacteria FEW /HPF Urine Hemoglobin 1+ mg/dL Urine Glucose NEGATIVE mg/dL Urine Total Protein NEGATIVE mg/dl Current Medications Medications Dose Sig/Keegan Start Time Status Last (Trade) Ordered Route PRN Stop Time Admin Dose Reason Admin Ketorolac 30 mg ONCE STAT 05/12/19 DC 05/12/19 Tromethamine IV 06:09 05/12/19 06:40 (Toradol) 06:11 Ondansetron 4 mg ONCE STAT 05/12/19 DC 05/12/19 HCl (Zofran IV 06:09 05/12/19 06:31 Inj) 06:11 Morphine 4 mg ONCE STAT 05/12/19 DC 05/12/19 Sulfate IV 06:09 05/12/19 06:31 (morphine) 06:11 Sodium 1,000 ml @ Q1H ONCE 05/12/19 DC 05/12/19 Chloride 1,000 mls/hr IV 06:30 05/12/19 06:31 07:29 Famotidine 20 mg ONCE ONCE 05/12/19 DC 05/12/19 (Pepcid Iv) IV 06:30 05/12/19 06:31 06:31 Ceftriaxone 50 ml @ ONCE ONCE 05/12/19 DC 05/12/19 Sodium 100 mls/hr IVPB 09:00 05/12/19 08:37 09:29 Morphine 2 mg ONCE STAT 05/12/19 DC 05/12/19 Sulfate IV 08:33 05/12/19 08:37 (morphine) 08:34 Procedures/MDM DIAGNOSTIC IMAGING REPORT Patient: RAGHAV GUILLEN : 1970 Age: 49 Sex: F MR #: [id number] DOS: 05/12/19 0605 Ordering MD: PATRICIA TIM NP Location: E Room/Bed: PROCEDURE: CT Abdomen and pelvis without contrast. CLINICAL INDICATION: Right side tenderness and pain TECHNIQUE: CT scan of the abdomen and pelvis without contrast was performed on a multidetector high-resolution CT scan. . Coronal and sagittal reformatted images were obtained from the axial source images. Standard CT scan of the abdomen pelvis without contrast protocols were performed. The total exam CTDI equals 18.54 mGy and the total exam DLP equals 1090.2 mGy- cm. One or more of the following dose reduction techniques were used: - Automated exposure control. - Adjustment of the mA and/or kV according to patient size. Use of iterative reconstruction technique. Dicom images are available COMPARISON: CT abdomen pelvis 01/25/2019 . Abdominal ultrasound 05/12/2019 FINDINGS: Compared to CT abdomen pelvis 01/25/2019 the right double-J ureteral stent has been removed. The kidneys are normal in size without hydronephrosis bilaterally. In the lateral left mid renal cortex is an ill-defined approximately 1 cm low density unchanged likely a cyst. There are multiple small nonobstructing inferior left renal calcified calculi the largest measuring 3 mm. No evidence ureteral calcified calculi or dilatation. Distended otherwise unremarkable urinary bladder. Anteverted anteflexed uterus with well-positioned intrauterine device. Uterus otherwise unremarkable. No adnexal masses. No evidence of intra-abdominal free air, free fluid, abscesses or lymphadenopathy. Stomach, small bowel and appendix are unremarkable. Liver spleen pancreas adrenal glands and gallbladder are unremarkable. No evidence of biliary ductal dilation. Minimal dependent subsegmental atelectasis. Aorta unremarkable. Abdominal pelvic wall unremarkable. Degenerative changes lower thoracic and lumbar spine without acute osseous findings are osteoblastic/osteolytic lesions. IMPRESSION: 1. Interval removal of double-J right ureteral stent. 2. Multiple small nonobstructing inferior left renal calcified calculi the largest measuring 3 mm. No other urinary calcified calculi bilaterally. No obstructive uropathy bilaterally. 3. Ill-defined 1 cm low density lateral left mid renal cortex unchanged likely a cyst. 4. No gastrointestinal disease. RPTAT:AAJJ Physician Jovanna Date Time Electronically viewed and signed by Luis Devi Physician on 05/12/2019 08:01 BM/ CC: PATRICIA TIM [id number] DIAGNOSTIC IMAGING REPORT Patient: RAGHAV GUILLEN : 1970 Age: 49 Sex: F MR #: [id number] DOS: 05/12/19 0623 Ordering MD: PATRICIA TIM PRIVACY OFFICER Location: [facility] Room/Bed: PROCEDURE: US Abdomen (right upper quadrant). CLINICAL INDICATION: Right upper quadrant pain TECHNIQUE: Multiple real-time longitudinal and transverse images of the right upper quadrant of the abdomen were acquired utilizing a curved array transducer. Images were reviewed on a high-resolution PACS workstation. COMPARISON: None FINDINGS: The liver is normal in size and echogenicity without focal mass or intrahepatic biliary dilatation. There is normal hepatopedal flow within the main portal vein. Liver measures 16.1 cm. There is no pericholecystic fluid or gallbladder wall thickening or gallstones. No intra or extrahepatic biliary dilatation is seen. The common bile duct ervin ures 2 mm in maximal dimension. The visualized portions of the pancreas are unremarkable with obscuration of the tail of the pancreas. No free fluid is identified. The right kidney measures 11.9 cm in length. There is normal echogenicity within the right kidney. There is no perinephric fluid collection. Mild right pelvicaliceal prominence. No mass, or calculus is seen. IMPRESSION: Mild right pelvicaliceal prominence, otherwise unremarkable right upper quadrant ultrasound. RPTAT: QQ Physician Cedric Date Time Electronically viewed and signed by Physician Cedric on 05/12/2019 07:29 rV/ CC: PATRICIA TIM [id number] MDM: Given patient's history of kidney stones there is concern for possible stone this time as well. Therefore CT without contrast was ordered by previous provider. I do feel that this was appropriate. CT results within normal limits. In addition patient had some right upper quadrant tenderness so gallbladder ultrasound was ordered. This study was within normal limits as well. UA did show positive for UTI's so given patient's complaint of flank pain patient will be treated for pyelonephritis. Patient was given 1 g ceftriaxone ceftriaxone in the ER and discharged with 14 days of Keflex. I have low suspicion for acute coronary syndrome, AAA, mesenteric ischemia, lower lobe pneumonia, DKA, bowel perforation, cholecystitis, choledocholithiasis, ascending cholangitis, hepatic abscess, pancreatitis, PUD, splenic rupture, diverticulitis, nephrolithiasis, appendicitis, , [, ectopic , PID, ovarian torsion or tubo-ovarian abscess]. At this time, patient is stable for discharge and outpatient management. I have instructed the patient to follow-up with his/her primary care physician in 1-2 days. I have discussed with the patient the possibility of needing to see a specialist for further workup and imaging studies if symptoms persist. I have instructed the patient to promptly return to the ER for any new or worsening symptoms including but not limited to increased pain, fever, nausea, vomiting, weakness or LOC. The patient and/or family expressed understanding of and agreement with this plan. All questions were answered. Home care instructions were provided. Communication with patient both during the exam and instructions for discharge were performed with using a improvement lead . Patient gave verbal confirmation to the practitioner, through the improvement lead, that they understood everythign that was being said to them. DISCLAIMER: Inadvertent spelling and grammatical errors are likely due to EHR/dictation software use and do not reflect on the overall quality of patient care. Also, please note that the electronic time recorded on this note does not necessarily reflect the actual time of the patient encounter. Departure Diagnosis: Primary Impression: UTI (urinary tract infection) Condition: Stable VERA TERRAZAS May 12, 2019 06:22
[2019-05-12] MEDS ORDERED: FAMOTIDINE 20 MG INJ IV ONE (06:30)
[2019-05-12] MEDS ORDERED: SOD CHLORIDE 0.9% 1,000 ML IV ONE (06:30)
[2019-05-12] MEDS ORDERED: morphine 2 MG INJ IV STA (08:33)
[2019-05-12] MEDS ORDERED: HYDR-4011 PO (08:35)
[2019-05-12] MEDS ORDERED: CEPH-443 PO (08:36)
[2019-05-12 08:59] VITALS: BP 131/86; PULSE 65; RESP 18
[2019-05-12] MEDS ORDERED: CEFTRIAXONE 1 GM/50 ML (PMX) 50 ML IVPB ONE (09:00)
== END 2019-05-12 09:03 | disposition home or self-care (01) ==
LOC: FTE 05:46
DX: N39.0 Urinary tract infection, site not specified (principal)
CPT/HCPCS: 74176; 76705; 80053; 81001; 81025; 82150; 83690; 85025; 87086; 96361; 96365; 96375; 96376; J0696; J1885; J2270; J2405; J7030; Z7502; Z7610

== ENCOUNTER 2019-06-03 21:24 | Emergency (ER) | payer OTHER ==
[~2019-06-03] VITALS: Ht 162.6 cm; Wt 81.6 kg
[~2019-06-03 21:24] MED LIST changes: +CEPH-443 PO; +HYDR-4011 PO; +IBUP-1542 PO; +SULF1TAB31 PO
[2019-06-03 21:28] VITALS: Ht 162.6 cm; Wt 81.6 kg
[2019-06-03] MEDS ORDERED: morphine 4 MG/ML VIAL IV STA (23:45)
[2019-06-03] MEDS ORDERED: ONDANSETRON 4 MG INJ IV STA (23:45)
[2019-06-03] MEDS ORDERED: SOD CHLORIDE 0.9% 1,000 ML IV STA (23:45)
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
[2019-06-04] MEDS ORDERED: KETOROLAC 15 MG INJ IV STA (02:07)
[2019-06-04] MEDS ORDERED: CEFTRIAXONE 1 GM INJ IM ONE ×2 (02:30)
[2019-06-04] MEDS ORDERED: CEFTRIAXONE 1 GM INJ IVPB ONE (02:30)
[2019-06-04] MEDS ORDERED: CEFTRIAXONE 1 GM/50 ML (PMX) 50 ML IVPB ONE (02:30)
[2019-06-04 03:13] VITALS: BP 142/80; PULSE 83; RESP 16
== END 2019-06-04 03:13 | disposition home or self-care (01) ==
LOC: FTE 21:24
DX: M54.5 Low back pain (principal); R10.9 Unspecified abdominal pain
CPT/HCPCS: 36415; 76775; 80053; 81001; 81025; 83605; 83690; 85025; 87086; 96361; 96365; 96375; J0696; J1885; J2270; J2405; J7030; Z7502

== ENCOUNTER 2019-06-28 18:45 | Emergency (ER) | payer SELFPAY ==
[~2019-06-28] VITALS: Ht 152.4 cm; Wt 81.3 kg
[2019-06-28 18:52] VITALS: BP 137/93; PULSE 109; RESP 18; Ht 152.4 cm; Wt 81.3 kg
== END 2019-06-28 21:00 | disposition left against medical advice (07) ==
LOC: FTE 18:45
DX: Z53.21 Procedure and treatment not carried out due to patient leaving prior to being seen by health care provider (principal)